=== PATIENT | male | born 1960 | race Caucasian/White ===

== ENCOUNTER → 2016-03-27 09:34 | Outpatient (CLI) | payer BC ==
[2015-06-05 07:27] VITALS: BMI 29.0
[~2016-03-27 09:34] MED LIST: ADVAIR 100/501 DISK INH; ASPIRIN81 MG PO; COZAAR100 MG PO; NORVASC5 MG PO; PLAVIX75 MG PO; PROTONIX40 MG PO
== END | disposition home or self-care (01) ==
LOC: D.CT 09:34
DX: R93.8 Abnormal findings on diagnostic imaging of other specified body structures (principal); R10.9 Unspecified abdominal pain

== ENCOUNTER 2016-03-30 07:24 | Outpatient (CLI) | payer BC ==
[~2016-03-30] VITALS: Ht 170.2 cm; Wt 86.4 kg
--- NOTE | ~2016-03-30 | HEMODYNAMI ---
PATIENT:TISH TELLES MEDICAL RECORD: [id number] : 60 LOCATION:[facility] ADMISSION DATE: 03/30/16 Generatedon:03/30/201610:44 Patient name: TISH TELLES Patient #: [id number] SSN: : 1960 Date of study: 03/30/2016 Page: Of Hemodynamic Procedure Report Patient Data Patient Demographics Procedure consent was obtained First Name: TISH Gender: Male Last Name: KOKI : 1960 Middle Initial: VASQUEZ Age: 55 year(s) Patient #: [id number] Race: Additional ID: [id number] Contact details [address]: [address] [place] [address] State: [place] City: [place] Zip code: [address] Past Medical History History of disease Date Diagnosis Comments CAD Chronic lung disease->COPD Peripheral vascular disease Allergies: No known allergies Admission Admission Data Admission Date: 03/30/2016 Admission Time: 7:24 Height (in.): 67 BSA: 1.98 (m2) Height (cm.): 170.18 BMI: 29.76 (kg/m2) Weight (lbs.): 190 Weight (kg.): 86.18 Lab Results Lab Result Date: 03/30/2016 Lab Result Time: 0:00 Biochemistry Name Units Result Min Max BUN mg/dl 11 --(-*--)-- 7 18 Creatinine mg/dl 0.7 --(*---)-- 0.6 1.3 CBC Name Units Result Min Max Hemoglobin g/dl 17.1 --(---*)-- 13.5 17.5 Procedure Procedure Types Cath Procedure Diagnostic Procedure [facility] w/Coronaries PCI Procedure Coronary Stent Initial Miscellaneous Procedures Moderate Sedation up to 15 minutes Procedure Description Procedure Date Procedure Date: 03/30/2016 Procedure Start Time: 10:16 Procedure End Time: 10:41 Procedure Staff Name Function Dewayne Lan MD Performing Physician Josselin Marrero RT Scrub Matilde Rodrigues RN Nurse Arsenio Leigh RN Dining Room Attendant Cafeteria Maurice Youssef RT Monitor Shalondarose Tai RT Dining Room Attendant Cafeteria Procedure Data Cath Procedure Fluoroscopy Diagnostic fluoroscopy Total fluoroscopy Time: 9.2 time: 9.2 min min Diagnostic fluoroscopy Total fluoroscopy dose: 646 dose: 646 mGy mGy Contrast Material Contrast Material Type Amount (ml) Isovue 300 150 Entry Location Entry Primary Successful Side Size Upsize Upsize Entry Closure Succes sful Closure Location (Fr) 1 (Fr) 2 (Fr) Remarks Device Remarks Femoral Right 5 Fr 6 Fr Vascade artery Short Closure System Estimated blood loss: 10 ml Diagnostic catheters Device Type Used For End Catheter Placement Cordis 5Fr Pigtail Procedure Catheter (MP) Cordis 5Fr JL 4.0 Left Coronary Catheter (MP) Angiography Cordis 5Fr 3DRC Catheter Right Coronary (MP) Angiography Procedure Complications No complications Procedure Medications Medication Administration Route Dosage Oxygen NC 2 l/min Lidocaine 2% added to field 20 Heparin Flush Bag added to field 2 bags (1000units/500ml NS) 0.9% NaCl I.V. 100 ml/hr Versed I.V. 2 mg Fentanyl I.V. 100 mcg Versed I.V. 2 mg Fentanyl I.V. 100 mcg Versed I.V. 1 mg Fentanyl I.V. 50 mcg Heparin Bolus I.V. 4000 units Versed I.V. 1 mg Fentanyl I.V. 50 mcg Nitroglycerin IC/IA I.C. 300 mcg Versed I.V. 1 mg Fentanyl I.V. 50 mcg Lopressor I.V. 5 mg Fentanyl I.V. 50 mcg Hemodynamics Rest BSA: 1.98 (m2) HGB: 17.1 (g/dl) O2 Consumption: Estimated: 240.72 (ml/min) O2 Co nsumption indexed: Estimated:121.58 (ml/min/m) Heart Rate: 78 (bpm) Snapshots Pre Cath Intra NCS Post Cath Vital Signs Time Heart Resp SPO2 etCO2 [id number] NIBP (mmHg) Rhythm Pain Sedatio n Rate (ipm) (%) (mmHg) (mmHg) Status Level (bpm) 10:01:38 74 16 100 0 0 216/100(153) NSR 0 (11) 10(A) , No pain 10:06:07 80 17 99 0 0 166/93(138) NSR 0 (11) 10(A) , No pain 10:10:27 78 15 97 0 0 171/92(145) NSR 0 (11) 10(A) , No pain 10:14:51 79 16 95 0 0 164/85(124) NSR 0 (11) 10(A) , No pain 10:19:07 91 20 97 0 0 155/94(125) NSR 0 (11) 9(A) , No pain 10:23:27 80 18 95 0 0 147/79(111) NSR 0 (11) 9(A) , No pain 10:27:41 90 16 96 0 0 134/82(109) NSR 0 (11) 9(A) , No pain 10:32:40 107 18 96 0 0 Measuring NSR 0 (11) 9(A) , No pain 10:32:50 108 17 95 0 0 178/100(137) NSR 0 (11) 9(A) , No pain 10:37:09 104 17 93 0 0 154/99(134) NSR 0 (11) 9(A) , No pain 10:41:26 83 17 94 0 0 167/90(114) NSR 0 (11) 10(A) , No pain Medications Time Medication Route Dose Verified Delivered Reason Notes Effectiveness by by 9:56:40 Oxygen NC 2 Dewayne Buffie used for l/min Riky Rodrigues RN procedure 10:00:08 Lidocaine 2% added 20ml Dewayne Dewayne for local to vial Riky Lan MD anesthetic field 10:00:13 Heparin Flush added 2 Dewayne Dewayne used for Bag to bags Riky Lan MD procedure (1000units/500ml field NS) 10:00:22 0.9% NaCl I.V. 100 Dewayne Buffie Per physician ml/hr Riky Rodrigues RN 10:13:26 Versed I.V. 2 mg Dewayne Buffie for sedation Riky Rodrigues RN 10:13:32 Fentanyl I.V. 100 Dewayne Buffie for sedation mcg Riky Rodrigues RN 10:18:35 Versed I.V. 2 mg Dewayne Buffie for sedation Riky Rodrigues RN 10:18:39 Fentanyl I.V. 100 Dewayne Buffie for sedation mcg Riky Rodrigues RN 10:21:24 Versed I.V. 1 mg Dewayne Buffie for sedation Riky Rodrigues RN 10:21:28 Fentanyl I.V. 50 Dewayne Aaronie for sedation mcg Riyk Rodrigues RN 10:24:20 Heparin Bolus I.V. 4000 Dewayne Galenie for verifi ed units Riky Rodrigues RN anticoagulation with dr lan 10:27:14 Versed I.V. 1 mg Dewayne Buffie for sedation Riky Rodrigues RN 10:27:17 Fentanyl I.V. 50 Dewayne Galenie for sedation mcg Riky Rodrigues RN 10:31:54 Nitroglycerin I.C. 300 Dewayne Buchanan for IC/IA mcg Riky kemp 10:33:31 Versed I.V. 1 mg Dewayne Aaronie for sedation Riky Rodrigues RN 10:33:35 Fentanyl I.V. 50 Dewayne Galenie for sedation mcg Riky Rodrigues RN 10:35:05 Fentanyl I.V. 50 Dewayne Galenie for sedation mcg Riky Rodrigues RN 10:36:23 Lopressor I.V. 5 mg Dewayne Clayton Per physician Riky Rodrigues RN Procedure Log Time Note 9:30:24 Arsenio Leigh RN sent for patient. Start room use. 9:46:19 ACC Patient presents with Stable Angina CCS Anginal Class 2--Slight limitation of ordinary activity. 9:46:21 Diagnostic Cath status Elective 9:46:38 Time tracking: Regular hours 9:46:42 Plan of Care:Hemodynamics will remain stable., Cardiac rhythm will remain stable., Comfort level will be maintained., Respiratory function will remain adequate., Patient/ family verbilizes understanding of procedure., Procedure tolerated without complication., Recovers from procedure without complications.. 9:46:48 Patient received from Outpatients to CCL 1 Alert and oriented. Tansferred to table in Supine position. 9:46:49 Warm blankets applied, and berto hugger turned on for patient comfort. 9:46:50 Correct patient and procedure confirmed by team. 9:46:51 Signed procedure consent form obtained from patient. 9:46:52 ECG and BP/O2 sat monitors applied to patient. 9:47:33 Patient Height : 67 inches 9:47:35 Patient Weight : 190 lbs 9:49:51 Lab Result : Hemoglobin 17.1 g/dl 9:49:51 Lab Result : Creatinine 0.7 mg/dl 9:49:51 Lab Result : BUN 11 mg/dl 9:53:45 H&P Date Dictated: 03/25/2016 Within 30 days and on chart., H&P Addendum completed by physician on day of procedure. (MUST COMPLETE FOR ALL OUTPATIENTS). 9:53:49 Pre-procedure instructions explained to patient. 9:54:11 Family in waiting room. 9:54:13 Patient NPO since Midnight. 9:54:49 Patient allergic to No known allergies 9:54:54 Is the patient allergic to Iodine/contrast media? No. 9:54:59 Is the patient allergic to Iodine/contrast media? No. 9:55:03 Is patient on blood thinner?Yes 9:55:12 ACC The patient was administered the following blood thiners within the last 24 hours: ACCAspirin, ACCPlavix 9:55:43 Patient diabetic? No. 9:55:47 Previous problem with sedation/anesthesia? No ? 9:56:14 IV patent on arrival in left forearm with 0.9% NaCl at [facility]. 9:56:40 Oxygen 2 l/min NC was given by Matilde Rodrigues RN; used for procedure; 9:56:59 Snore? Yes 9:57:01 Sleep apnea? No 9:57:05 Airway obstruction? Yes COPD 9:57:21 Lab results completed and on chart. 9:57:26 Right groin area was prepped with chlora-prep and draped in sterile fashion 9:57:32 Sharps counted by scrub and verified by R.N. 9:59:12 Vital chart was started 9:59:43 Baseline sample Acquired. 9:59:49 Rhythm: sinus rhythm 9:59:51 Full Disclosure recording started 10:00:05 Use device set Femoral Dx 10:00:07 Acist Syringe opened to sterile field. 10:00:08 Lidocaine 2% 20ml vial added to field was given by Dewayne Lan MD; for local anesthetic; 10:00:08 Bag Decanter opened to sterile field. 10:00:08 Medline Cath Pack opened to sterile field. 10:00:10 Terumo 5Fr [place] Sheath opened to sterile field. 10:00:13 Heparin Flush Bag (1000units/500ml NS) 2 bags added to field was given by Dewayne Lan MD; used for procedure; 10:00:13 St Alex 260cm J .035 wire opened to sterile field. 10:00:15 Acist Hand Control opened to sterile field. 10:00:15 Acist Manifold opened to sterile field. 10:00:18 Cordis Infinity 5Fr Multipack catheter opened to sterile field. 10:00:22 0.9% NaCl 100 ml/hr I.V. was given by Matilde Rodrigues RN; Per physician; 10:00:49 Procedure type changed to Cath procedure, Diagnostic procedure, LHC, LHC w/Coronaries, PCI procedure, Coronary Stent Initial, Miscellaneous Procedures, Moderate Sedation up to 15 minutes 10:09:23 Physician paged 10:10:56 Tegaderm 4 x 4 opened to sterile field. 10:12:28 Zero performed for pressure channel P1 10:12:51 Physician arrived 10:13:14 --------ALL STOP TIME OUT------ 10:13:16 Final Timeout: patient, procedure, and site verified with staff and physician. All members of the team are in agreement. 10:13:19 Bilateral groins site verified by team. 10:13:24 Physical assessment completed. ASA score P 2 - A patient with mild systemic disease as per Dewayne Lan MD. 10:13:26 Versed 2 mg I.V. was given by Matilde Rodrigues RN; for sedation; 10:13:29 Sedation plan: IV Moderate Sedation Versed, Fentanyl 10:13:32 Fentanyl 100 mcg I.V. was given by Matilde Rodrigues RN; for sedation; 10:16:34 Procedure started. 10:16:39 Local anesthetic to right femoral artery with Lidocaine 2% by Dewayne Lan MD.INITIAL ACCESS ONLY 10:18:35 Versed 2 mg I.V. was given by Matilde Rodrigues RN; for sedation; 10:18:39 Fentanyl 100 mcg I.V. was given by Matilde Rodrigues RN; for sedation; 10:19:35 A 5 Fr sheath was inserted into the Right Femoral artery 10:20:01 A Cordis 5Fr Pigtail Catheter (MP) was advanced over the wire and used for Procedure. 10:20:06 LV gram done using ABDUL 10:20:14 EF : 55 % 10:20:16 Catheter removed. 10:20:28 A Cordis 5Fr JL 4.0 Catheter (MP) was advanced over the wire and used for Left Coronary Angiography. 10::24 Versed 1 mg I.V. was given by Matilde Rodrigues RN; for sedation; 10::28 Fentanyl 50 mcg I.V. was given by Matilde Rodrigues RN; for sedation; 10::57 Catheter removed. 10:22:05 A Cordis 5Fr 3DRC Catheter (MP) was advanced over the wire and used for Right Coronary Angiography. 10:22:11 RCA angiography performed. 10:22:42 JelasticumNumberFour 6Fr [place] Sheath opened to sterile field. 10:22:43 Carlson GeoOPisper J 300cm 0.014 guide wire opened to sterile field. 10:22:43 [employer] Inflation Kit opened to sterile field. 10:22:48 Catheter removed. 10:22:49 Proceeding to intervention. 10:23:04 Sheath upsized to a 6 Fr Short. 10:23:15 ACC PCI Site: mRCA has 90% stenosis. 10:23:18 ACC Pre-intervention CINDY Flow is 3. 10:24:14 Medtronic Launcher 6Fr AR 2.0 guide catheter opened to sterile field. 10:24:20 Heparin Bolus 4000 units I.V. was given by Matilde Rodrigues RN; for anticoagulation; verified with dr lan 10:24:23 whis wire advanced. 10:24:49 Wire advanced across lesion. 10:25:33 Inflation number: 1 A [place] Sci [place] 3.5 X 20 balloon was prepped and advanced across the Mid RCA, then inflated to 7 [place] for 0:10 (min:sec). 10:25:39 Inflation number: 2 The [place] Sci [place] 3.5 X 20 balloon was reinflated across the Mid RCA, to 11 [place] for 0:00 (min:sec). 10:26:51 Balloon removed over the wire. 10:27:14 Versed 1 mg I.V. was given by Matilde Rodrigues RN; for sedation; 10:27:17 Fentanyl 50 mcg I.V. was given by Matilde Rodrigues RN; for sedation; 10:27:35 Inflation Number: 3 A Medtronic Resolute 3.5 X 38 stent was prepped and advanced across the Mid RCA. The stent was deployed at 17 [place] for 0:10 (min:sec). 10:27:57 Inflation number: 4 The stent balloon was then re-inflated across the Mid RCA to 17 [place] for 0:00 (min:sec). 10:28:28 Vascade 6/7 Fr Closure Device opened to sterile field. 10:29:18 Inflation number: 5 The stent balloon was then re-inflated across the Mid RCA to 21 [place] for 0:00 (min:sec). 10:30:51 Inflation Number: 1 A Medtronic Resolute 3.0 X 18 stent was prepped and advanced across the Dist RCA. The stent was deployed at 13 [place] for 0:10 (min:sec). 10:31:54 Nitroglycerin IC/IA 300 mcg I.C. was given by Dewayne Lan MD; for vasodilation; 10:32:13 Inflation number: 2 The stent balloon was then re-inflated across the Dist RCA to 3 [place] for 0:10 (min:sec). 10:32:22 Inflation number: 3 The stent balloon was then re-inflated across the Dist RCA to 3 [place] for 0:10 (min:sec). 10:33:01 Inflation number: 4 The stent balloon was then re-inflated across the Dist RCA to 5 [place] for 0:10 (min:sec). 10:33:31 Versed 1 mg I.V. was given by Matilde Rodrigues RN; for sedation; 10:33:35 Fentanyl 50 mcg I.V. was given by Matilde Rodrigues RN; for sedation; 10:34:15 Inflation number: 5 The stent balloon was then re-inflated across the Dist RCA to 7 [place] for 0:10 (min:sec). 10:34:33 Balloon removed over the wire. 10:35:05 Fentanyl 50 mcg I.V. was given by Matilde Rodrigues RN; for sedation; 10:36:11 Inflation Number: 1 A Medtronic Resolute 3.0 X 22 stent was prepped and advanced across the Dist RCA1. The stent was deployed at 13 [place] for 0:10 (min:sec). 10:36:23 Lopressor 5 mg I.V. was given by Matilde Rodrigues RN; Per physician; 10:36:33 Wire removed. 10:36:35 Guide catheter removed. 10:36:49 Sheath removed intact; hemostasis achieved with Vascade Closure System to the Right Femoral artery. 10:36:56 Procedure ended.(Physican Out) 10:37:50 Fluoroscopy time 09.20 minutes. 10:37:55 Fluoroscopy dose: 646 mGy 10:37:55 Flurop Dose total: 646 10:38:00 Contrast amount:Isovue 300 150ml. 10:38:03 Sharps counted by scrub and verified by R.N. 10:38:10 Insertion/operative site no bleeding no hematoma. 10:38:18 Post-op/insertion site Right Femoral artery dressed using a 4 x 4 and Tegaderm. 10:38:24 Post right femoral artery:stable 10:38:30 Post Procedure Pulses reassessed and unchanged 10:38:38 Post-procedure physical assessment completed. ASA score P 2 - A patient with mild systemic disease as per Dewayne Lan MD. 10:38:43 Post procedure rhythm: unchanged. 10:38:46 Estimated blood loss: 10 ml 10:38:49 Post procedure instruction explained to patient.Patient verbalizes understanding. 10:38:51 Patient needs reinforcement of post procedure teaching. 10:39:41 Procedure and supply charges have been captured, reviewed, submitted and are correct. 10:40:54 Procedure Complication : No complications 10:40:57 Vital chart was stopped 10:40:58 See physician's report for complete and final results. 10:41:11 Report given to Outpatients. 10:41:15 Patient transfered to Outpatients with Stretcher. 10:41:20 Procedure ended. 10:41:20 Full Disclosure recording stopped 10:41:23 End room use (Document Last) 10:42:47 ACC-PCI Only Patient was given prescriptions, or instructed by Dewayne Lan MD to start/continue the following medications upon discharge: Plavix Intervention Summary Intervention Notes Time ActionType Lesion and Equipment Action# Pressure Duration Attributes Used 10:25:33 Inflate Mid RCA [place] 1 7 00:10 balloon Sci [place] 3.5 X 20 balloon 10:25:39 Reinflate Mid RCA [place] 2 11 00:00 balloon Sci [place] 3.5 X 20 balloon 10:27:35 Place stent Mid RCA Medtronic 3 17 00:10 Resolute 3.5 X 38 stent 10:27:57 Reinflate Mid RCA Medtronic 4 17 00:00 stent Resolute balloon 3.5 X 38 stent 10:29:18 Reinflate Mid RCA Medtronic 5 21 00:00 stent Resolute balloon 3.5 X 38 stent 10:30:51 Place stent Dist RCA Medtronic 1 13 00:10 Resolute 3.0 X 18 stent 10:32:13 Reinflate Dist RCA Medtronic 2 3 00:10 stent Resolute balloon 3.0 X 18 stent 10:32:22 Reinflate Dist RCA Medtronic 3 3 00:10 stent Resolute balloon 3.0 X 18 stent 10:33:01 Reinflate Dist RCA Medtronic 4 5 00:10 stent Resolute balloon 3.0 X 18 stent 10:34:15 Reinflate Dist RCA Medtronic 5 7 00:10 stent Resolute balloon 3.0 X 18 stent 10:36:11 Place stent Dist RCA1 Medtronic 1 13 00:10 Resolute 3.0 X 22 stent Device Usage Item Name Manufacture Quantity Catalog Number Hospital Part Current Mini mal Lot# / Charge Number Stock Stock Serial# Code Acist Acist 1 21522 613174 720027 860246 20 NewsCastic [employer] Inc Bag Microtek 1 2002S 783787 98309 537157 5 Gunosy Inc. Medline Cardinal 1 [id number] 846476 00234 568713 5 Cath Pack Health Terumo 5Fr Terumo 1 [id number] 479104 621653 300630 [address] Alex 1 935701 611375 315291 423520 30 260cm J .035 wire Acist Hand Acist 1 47513 825255 230932 913922 5 FIXO Medical Systems Inc Acist Acist 1 98238 516071 531248 664995 5 Qiro Systems Inc Cordis Cardinal 1 [id number] 532345 03513 778456 30 Infinity Health 5Fr Multipack catheter Tegaderm 4 3M 1 [id number] 326476 276526 700082 5 x 4 Cordis 5Fr Cardinal 1 721250 5 Pigtail Health Catheter (MP) Cordis 5Fr Cardinal 1 391229 5 JL 4.0 Health Catheter (MP) Terumo 6Fr Terumo 2 [id number] 465321 448771 180781 40 [place] Sheath Cordis 5Fr Cardinal 1 874021 5 3DRC Health Catheter (MP) Carlson Carlson 1 [id number] 596525 592276 071708 5 Whisper J Vascular 300cm 0.014 guide wire Merit Merit 1 [id number] 369586 349726 247051 15 BasixCompak Medical Inflation Kit Medtronic Medtronic 1 [id number] 777040 90451 979586 1 Launcher 6Fr AR 2.0 guide catheter [place] Sci [place] 1 [id number] 141352 485365 658654 1 [id number] [place] Scientific 3.5 X 20 balloon Medtronic Medtronic 1 [id number] 417562 261924 0 [id number] Resolute 3.5 X 38 stent Vascade 07/22 Cardiva 1 [id number] 596920 656434 582804 5 Fr Closure Medical, Device Inc. Medtronic Medtronic 1 [id number] 687394 560651 1 [id number] Resolute 3.0 X 18 stent Medtronic Medtronic 1 [id number] 449947 855913 5 [id number] Resolute 3.0 X 22 stent Signature Audit [place] Stage Time Signature Unsigned Intra-Procedure 03/30/2016 Shalonda Tai 10:44:00 AM RT(R) Signatures Monitor : Maurice Youssef RT Signature : Date : Time : [id number] [place] [address]
[~2016-03-30 07:24] MED LIST changes: -ADVAIR 100/501 DISK INH; -PROTONIX40 MG PO
[2016-03-30] MEDS ORDERED: ADVAIR 100/501 DISK INH (07:43)
[2016-03-30] MEDS ORDERED: PROTONIX40 MG PO (07:43)
[2016-03-30 07:51] VITALS: BP 158/86; Ht 170.2 cm; Wt 86.4 kg
[2016-03-30 08:03] LABS: BASOPHILS 0.8 % (0.0-2.0); EOSINOPHILS 4.5 % (0-7); HEMATOCRIT 48.7 % (42.0-54.0); HEMOGLOBIN 17.1 g/dL (13.5-17.5); IMMATURE GRANULOCYTES 0.2 % (0-5); LYMPHOCYTES 33.5 % (15-50); MCH 35.6 pg (26.0-34.0); MCHC 35.1 g/dL (31.0-37.0); MCV 101.5 fL (80.0-100.0); MEAN PLATELET VOLUME 11.5 fL (7.4-10.4); MONOCYTES 11.5 % (2-11); NEUTROPHILS 49.5 % (40-80); PLATELET COUNT 133 10x3/uL (130-400); RDW 12.4 % (11.5-14.5); WBC 4.7 10x3/uL (4.8-10.8)
[2016-03-30 08:07] LABS: CALC OSMOLALITY 282 mosm/kg (275-300); CALCIUM 9.2 mg/dL (8.5-10.1); CARBON DIOXIDE 27.8 mmol/L (21.0-32.0); CHLORIDE - SERUM 106 mmol/L (98-107); CREATININE - SERUM 0.7 mg/dL (0.6-1.3); GLUCOSE 109 mg/dL (74-106); POTASSIUM - SERUM 4.7 mmol/L (3.5-5.1); SODIUM 142 mmol/L (136-145); UREA NITROGEN 11 mg/dL (7-18); eGFR NON AFRICAN AMERICAN > 90 mL/min (90-120)
--- NOTE | 2016-03-30 09:44 | NUR ---
IV BENADRYL GIVEN PER SÁNCHEZ LINE FLUSHED WITH 10 CC NS. TRANSPORT TO RETAIL LOSS PREVENTION OFFICER VIA STRETCHER
--- NOTE | 2016-03-30 11:03 | NUR ---
1040 RECEIVED PT FROM PACKAGER HEAD. PT IS DROWSY, DENIES ANY C/O. DRESSING TO RIGHT GROIN IS CDI, NO BLEEDING OR HEMATOMA NOTED. PEDAL PULSES PALPABLE. PT DENIES ANY C/O. IV PATENT. CALL LIGHT IN REACH. PT INSTRUCTED TO CALL FOR ANY NEEDS, TO KEEP HEAD TO PILLOW AND RIGHT LEG STRAIGHT, PT VERBALIZES UNDERSTANDING. FAMILY AT BEDSIDE.
--- NOTE | 2016-03-30 12:25 | NUR ---
1225 PT DENIES ANY C/O. GROIN REMAINS STABLE WITH NO BLEEDING OR HEMATOMA NOTED. PEDAL PULSES PALPABLE. CALL LIGHT IN REACH.
--- NOTE | 2016-03-30 13:02 | NUR ---
PATIENT SLEEPING QUIELTY WITH EYES CLOSED VSS WITH 6 FR VASCADE R/GROIN CDI NO BLEEDING NO HEMATOMA NOTED. WILL MONITOR
--- NOTE | 2016-03-30 14:22 | NUR ---
1300 PT SLEEPING OFF AND ON, DENIES ANY C/O. GROIN IS STABLE WTIH NO BLEEDING OR HEMATOMA. AT BEDSIDE. PEDAL PULSES PALPABLE. CALL LIGHT IN REACH.
--- NOTE | 2016-03-30 14:38 | NUR ---
1435 PT IS ALERT, DENIES ANY C/O. SANDWICH TRAY SERVED. GROIN STBLE WITH NO BLEEDING OR HEMATOMA, PEDAL PULSES PALPABLE. AT BEDSIDE.
--- NOTE | 2016-03-30 15:00 | NUR ---
1500 PT HAS TOLERATED SANDWICH WITH NO C/O NAUSEA. PT HAS AMBULATED TO THE BATHROOM AND VOIDED QS. GROIN REMAINS STABLE WITH AMBULATION. REVIEWED DC INSTRUCTIONS WITH PT AND WHO VERBALIZE UNDERSTANDING. PT ESCORTED TO PRIVATE AUTO VIA WC BY STAFF WITH DRIVING HIM HOME.
--- NOTE | 2016-04-10 08:46 | OP ---
PATIENT NAME: TISH TELLES MEDICAL RECORD: [id number] :60 LOCATION:D.CAT ADMISSION DATE: SURGEON: DION CRAWFORD MD DATE OF OPERATION: 03/30/2016 PROCEDURES: 1. PTCA stent RCA. 2. Left heart catheterization. 3. Selective coronary angiography. 4. Left ventriculogram. INDICATION: Angina and coronary artery disease. PROCEDURE: After informed consent was obtained and after detailed explanation of risks, benefits as well as alternative therapies, the patient elected to proceed with angiogram and angioplasty. The right femoral area was prepped and draped in normal sterile fashion. The right femoral artery was cannulated via modified Seldinger technique with placement of 6-[place] sheath. All catheters exchanged through this sheath. FINDINGS: Left ventriculogram was performed in standard 30-degree ABDUL view, reveals good cardiac wall motion, ejection fraction 55%. SELECTIVE CORONARY ANGIOGRAPHY: 1. Left main showed no significant angiographic disease. 2. Left anterior descending has moderate irregularities, but no flow-limiting stenosis. 3. Left circumflex shows mild to moderate irregularities, but no flow-limiting stenosis. 4. Right coronary has previously placed stents. There is 95% in-stent restenosis, as well as a 95% stenosis after the previously placed stent. PTCA STENT OF THE RIGHT CORONARY: The stent used from proximal to distal are 3.5 x 38, 3.0 x 18, 3.0 x 22 all Resolute stents. Result was 0% residual stenosis. OVERALL IMPRESSION: Successful percutaneous transluminal coronary angioplasty stent of the right coronary artery going from 95% initial stenosis to 0% residual. TRANSINT:[id number] Voice Confirmation ID: [id number] DOCUMENT ID: [id number] DION CRAWFORD MD at 0846 CC: [id number] DICTATION DATE: 03/30/16 1042 PROGRAM COUNSELOR: 03/30/16 1119 DEP CLI 03/30/[address] [address]
== END 2016-03-30 15:00 | disposition home or self-care (01) ==
LOC: D.CATH 07:24
PROVIDERS: Internal Medicine Interventional Cardiology
DX: I25.10 Atherosclerotic heart disease of native coronary artery without angina pectoris (principal); I10 Essential (primary) hypertension; E78.5 Hyperlipidemia, unspecified

== ENCOUNTER 2019-07-25 05:15 | Day surgery (SDC) | payer BC ==
[~2019-07-25] VITALS: Ht 170.2 cm; Wt 78.5 kg
[~2019-07-25 05:15] MED LIST changes: +ADVAIR 100/501 DISK INH; +PROTONIX40 MG PO
[2019-07-25 05:40] LABS: HEMATOCRIT 46.1 % (42.0-54.0); MCH 35.1 pg (26.0-34.0); MCHC 34.7 g/dL (31.0-37.0); MCV 101.1 fL (80.0-100.0); MEAN PLATELET VOLUME 9.9 fL (7.4-10.4); RBC 4.56 10x6/uL (4.20-6.10); RDW 12.4 % (11.5-14.5); WBC 4.8 10x3/uL (4.8-10.8)
[2019-07-25 06:32] VITALS: BP 112/74; Ht 170.2 cm; Wt 78.5 kg
--- NOTE | 2019-07-25 08:56 | NUR ---
0845 PT MORE ALERT NOW STATES HAS URGE TO DEFICATE, NOT READY TO GET OUT OF BED YET, BEDPAN OFFERED AND DECLINED. LEFT AT BEDSIDE. COFFEE ORDERED. 0850 COFFEE SERVED. AT SIDE.
--- NOTE | 2019-07-26 06:53 | OP ---
PATIENT NAME: TISH TELLES MEDICAL RECORD: [id number] :60 LOCATION:[facility] ADMISSION DATE: SURGEON: DAVID MCGUIRE MD DATE OF OPERATION: 07/25/2019 SURGEON: David Mcguire MD ANESTHESIA: TIVA by Lynn Delgado CRNA. DIAGNOSES: Obstructive bladder neck stenosis, elevated PSA of 7.0. PROCEDURE: Cystoscopy, transrectal ultrasound, and prostate biopsy. FINDINGS: On cystoscopy, no urethral strictures, tight bladder neck. Single ureteral orifices bilaterally with no bladder tumors. Transrectal ultrasound shows 19 gram prostate with hypoechoic areas in the anterior of the prostate. SPECIMENS: Prostate biopsy cores. BLOOD LOSS: None. CLINICAL HISTORY: This is a 58-year-old male, who was found to have an elevated PSA of 7.0. He does not have a family history of prostate cancer. On rectal examination, no nodules were palpated on the prostate. The prostate is small. He denies any voiding symptoms. He comes today to have a transrectal ultrasound and prostate biopsy. Cystoscopy was also consented to. He was given his preoperative antibiotics preparation supervisor freezing to the OR. DESCRIPTION OF PROCEDURE: The patient was given the IV antibiotics. He was placed into lithotomy position and prepped. We introduced the transrectal ultrasound probe. This showed that the bladder was quite full even though the patient had just voided within 30 minutes prior to the procedure. He seemed to have incomplete bladder emptying. Prostate size measurements were obtained and the prostate was found to be 19 grams in size. There are some intraprostatic stones in the hypoechoic area in the anterior portion of the prostate. Sextant biopsies were obtained with at least 3 cores from each sextant. Once all the sextant were obtained, we emptied the bladder through a Mcfarland catheter. The catheter was done as an in and out catheterization. We then scoped the patient by prepping him again and using a 17-Mohawk cystoscope. The findings are as outlined above. The patient was then awakened after draining the bladder through the scope and removing the scope. He was brought to the recovery room. I will see him in followup next week to review the results and to determine if he wants to have anything done about his bladder neck stenosis. TRANSINT:[id number] Voice Confirmation ID: [id number] DOCUMENT ID: [id number] DAVID MCGUIRE MD at 0653 CC: [id number] DICTATION DATE: 07/25/19 0839 FAMILY PRACTICE PHYSICIAN ASSISTANT: 07/25/19 1527 [facility] 07/25/19 [id number] [place] [address]
== END 2019-07-25 09:15 | disposition home or self-care (01) ==
LOC: D.OPS 05:15 → D.PAN 07:30 → D.OPS 07:30
PROVIDERS: Anesthesiology; ATTEND Urology
DX: N32.0 Bladder-neck obstruction (principal); R97.20 Elevated prostate specific antigen [PSA]; I10 Essential (primary) hypertension; J44.9 Chronic obstructive pulmonary disease, unspecified; N48.6 Induration penis plastica

== ENCOUNTER → 2019-08-01 10:11 | Outpatient (CLI) | payer BC ==
[2019-07-25 06:32] VITALS: BMI 27.1
== END | disposition home or self-care (01) ==
LOC: D.NM 10:00
PROVIDERS: ATTEND Urology
DX: C61 Malignant neoplasm of prostate (principal)

== ENCOUNTER 2019-08-11 11:39 | Outpatient (CLI) | payer BC ==
[~2019-08-11] VITALS: Ht 170.2 cm; Wt 82.7 kg
[2019-08-11 12:25] LABS: HEMATOCRIT 46.5 % (42.0-54.0); LYMPHOCYTES 32.9 % (15-50); MCH 34.3 pg (26.0-34.0); MCHC 34.4 g/dL (31.0-37.0); MCV 99.8 fL (80.0-100.0); MEAN PLATELET VOLUME 9.3 fL (7.4-10.4); NEUTROPHILS 52.2 % (40-80); PLATELET COUNT 135 10x3/uL (130-400); RBC 4.66 10x6/uL (4.20-6.10); RDW 12.5 % (11.5-14.5); WBC 4.2 10x3/uL (4.8-10.8)
[2019-08-11 12:33] VITALS: BP 175/82; Ht 170.2 cm; Wt 82.7 kg
[2019-08-11 12:45] LABS: CALC OSMOLALITY 276 mosm/kg (275-300); CALCIUM 8.5 mg/dL (8.5-10.1); CARBON DIOXIDE 28.5 mmol/L (21.0-32.0); CHLORIDE - SERUM 106 mmol/L (98-107); CREATININE - SERUM 0.8 mg/dL (0.6-1.3); GLUCOSE 96 mg/dL (74-106); POTASSIUM - SERUM 4.2 mmol/L (3.5-5.1); SODIUM 140 mmol/L (136-145); UREA NITROGEN 8 mg/dL (7-18); eGFR NON AFRICAN AMERICAN > 90 mL/min (90-120)
[2019-08-11 13:04] LABS: APTT 26.4 SECONDS (22.8-39.4); INR 1.1 (0.85-1.17); PROTIME 14.1 SECONDS (11.6-15.0)
--- NOTE | 2019-08-11 18:51 | NUR ---
1530 SPOKE WITH KELSEY SHEIKH. STATES [facility] WILL ENTER ORDERS TO DISCHARGE PT AT 1645 IF VSS AND NO OTHER CONCERNS
== END 2019-08-11 16:45 | disposition home or self-care (01) ==
LOC: D.SP 11:39 → D.CT 14:00 → D.SP 16:45
PROVIDERS: Radiology Diagnostic Radiology; ATTEND Urology
DX: C61 Malignant neoplasm of prostate (principal); I10 Essential (primary) hypertension; J44.9 Chronic obstructive pulmonary disease, unspecified; C79.51 Secondary malignant neoplasm of bone; F10.20 Alcohol dependence, uncomplicated; K70.30 Alcoholic cirrhosis of liver without ascites

== ENCOUNTER 2020-05-14 07:01 | Day surgery (SDC) | payer BC ==
[~2020-05-14] VITALS: Ht 170.2 cm; Wt 82.1 kg
--- NOTE | ~2020-05-14 | HEMODYNAMI ---
PATIENT:TISH TELLES MEDICAL RECORD: [id number] : 60 LOCATION:D.[facility] ADMISSION DATE: 05/14/20 Generatedon::57 Patient name: TISH TELLES Patient #: [id number] SSN: [id number] : 1960 Date of study: 05/14/2020 Page: Of Hemodynamic Procedure Report Patient Data Patient Demographics Procedure consent was obtained First Name: TISH Gender: Male Last Name: KOKI : 1960 [facility] Initial: VASQUEZ Age: 59 year(s) Patient #: [id number] Race: SSN: [id number] Additional ID: [id number] Contact details Address: [address] [place] [address] State: [place] City: [place] Zip code: [address] Past Medical History History of disease Date Diagnosis Comments CAD Chronic lung disease->COPD Peripheral vascular disease Allergies: No known allergies Admission Admission Data Admission Date: 05/14/2020 Admission Time: 7:01 Arrival Date: 05/14/2020 Arrival Time: 0:00 Admit Source: Other Insurance Payor: Private health insurance [facility] #: [id number] Height (in.): 67 BSA: 1.94 (m2) Height (cm.): 170.18 BMI: 28.34 (kg/m2) Weight (lbs.): 180.98 Weight (kg.): 82.09 Lab Results Lab Result Date: 05/14/2020 Lab Result Time: 0:00 Biochemistry Name Units Result Min Max BUN mg/dl 9 --(*---)-- 7 18 Creatinine mg/dl 0.7 --(*---)-- 0.6 1.3 eGFR ml/min 90 --(*---)-- 90 120 NONAFRICAN CBC Name Units Result Min Max Hemoglobin g/dl 16 --(--*-)-- 13.5 17.5 Procedure Procedure Types Cath Procedure Sedation Charges Moderate Sedation 25-39 minutes Peripheral Cath Diagnostic Procedure Roll Tender Peripheral Procedures AFRO Diagnostic Procedure Description Procedure Date Procedure Date: 05/14/2020 Procedure Start Time: 9:35 Procedure End Time: 9:50 Procedure Staff Name Function Angel Hodge MD Performing Physician Josselin Marrero RT Monitor Cary Uriarte RT Scrub Matilde Rodrigues RN Nurse Procedure Data Cath Procedure Fluoroscopy Diagnostic fluoroscopy Total fluoroscopy Time: 1.9 time: 1.9 min min Diagnostic fluoroscopy Total fluoroscopy dose: 260 dose: 260 mGy mGy Contrast Material Contrast Material Type Amount (ml) Isovue 300 96 Entry Location Entry Primary Successful Side Size Upsize Upsize Entry Closure Succes sful Closure Location (Fr) 1 (Fr) 2 (Fr) Remarks Device Remarks Femoral Left 5 Fr Exoseal artery Estimated blood loss: 5 ml Diagnostic catheters Device Type Used For End Catheter Placement DIAGNOSTIC UF 5Fr Multi-vessel catheter ([id number]) Angiography Procedure Complications No complications Procedure Medications Medication Administration Route Dosage Oxygen etCO2 Nasal cannula 2 l/min Lidocaine 2% added to field 20 Heparin Flush Bag added to field 2 bags (1000units/500ml NS) 0.9% NaCl I.V. 100 ml/hr Versed I.V. 1 mg Fentanyl I.V. 50 mcg Versed I.V. 1 mg Fentanyl I.V. 50 mcg Versed I.V. 1 mg Fentanyl I.V. 50 mcg Hemodynamics Rest BSA: 1.94 (m2) HGB: 16 (g/dl) O2 Consumption: Estimated: 227.16 (ml/min) O2 Cons umption indexed: Estimated:117.09 (ml/min/m) Heart Rate: 68 (bpm) Snapshots Pre Cath Intra NCS Post Cath Vital Signs Time Heart Resp SPO2 etCO2 NIBP (mmHg) Rhythm Pain Sedation Rate (ipm) (%) (mmHg) Status Level (bpm) 9:16:09 72 26 100 17.9 169/95(135) NSR 0 (11) 10(A) , No pain 9:20:27 73 22 99 22.4 141/83(109) NSR 0 (11) 10(A) , No pain 9:24:43 72 19 97 23.9 130/76(103) NSR 0 (11) 10(A) , No pain 9:28:59 70 18 97 26.9 118/72(101) NSR 0 (11) 10(A) , No pain 9:33:11 69 16 96 28.4 129/68(104) NSR 0 (11) 9(A) , No pain 9:37:23 68 14 97 30.7 126/76(103) NSR 0 (11) 9(A) , No pain 9:41:35 71 12 96 33.7 114/69(93) NSR 0 (11) 9(A) , No pain 9:45:45 72 13 96 32.9 115/66(97) NSR 0 (11) 9(A) , No pain 9:49:51 70 15 98 26.2 132/84(118) NSR 0 (11) 10(A) , No pain Medications Time Medication Route Dose Verified Delivered Reason Notes Effe ctiveness by by 9:18:11 Oxygen etCO2 2 Angel Buffie used for Nasal l/min Naveen Rodrigues RN procedure cannula 9:20:17 Lidocaine 2% added 20ml Angel Angel for local to vial Naveen Hodge MD anesthetic field 9:20:24 Heparin Flush added 2 Angel Angel used for Bag to bags Naveen Hodge MD procedure (1000units/500ml field NS) 9:20:35 0.9% NaCl I.V. 100 Angel Buffie Per ml/hr Naveen Rodrigues RN physician 9:21:49 Versed I.V. 1 mg Angel Buffie for Naveen Rodrigues RN sedation 9:21:55 Fentanyl I.V. 50 Angel Buffie for mcg Naveen Rodrigues RN sedation 9:31:34 Versed I.V. 1 mg Angel Buffie for Naveen Rodrigues RN sedation 9:31:38 Fentanyl I.V. 50 Angel Buffie for mcg Naveen Rodrigues RN sedation 9:37:44 Versed I.V. 1 mg Angel Buffie for Naveen Rodrigues RN sedation 9:37:48 Fentanyl I.V. 50 Angel Buffie for mcg Naveen Rodrigues RN sedation Procedure Log Time Note 8:45:58 Informed consent obtained and on chart 8:46:17 Diagnostic Cath Status : Elective 8:49:15 Arrival Date: 05/14/2020 12:00:00 AM 8:49:15 Admit Source: Other 8:49:19 Insurance Payor : Private health insurance 8:49:39 Patient Height : 67 inches 8:49:42 Patient Weight : 180.98 lbs 8:49:55 ACC Patient presents with Stable Angina CCS Anginal Class 2--Slight limitation of ordinary activity. 8:49:58 Procedure Status Elective Heart Cath (OP). 8:50:00 Time tracking: Regular hours (M-F 7:00 - 5:00) 8:50:05 Plan of Care:Hemodynamics will remain stable., Cardiac rhythm will remain stable., Comfort level will be maintained., Respiratory function will remain adequate., Patient/ family verbilizes understanding of procedure., Procedure tolerated without complication., Recovers from procedure without complications.. 8:50:11 H&P Date Dictated: 04/24/2020 Within 30 days and on chart.. 8:50:12 Pre-procedure instructions explained to patient. 8:50:13 Pre-op teaching completed and patient verbalized understanding. 8:50:15 Patient NPO since Midnight. 8:50:21 Patient allergic to No known allergies 8:50:27 Stress Test: no; N/A ? 8:50:28 Alarms reviewed by R. N. 8:50:29 Sharps counted by scrub and verified by R.N. 9:04:30 Matilde Rodrigues RN sent for patient. Start room use. 9:05:04 Lab Result : BUN 9 mg/dl 9:05:04 Lab Result : Hemoglobin 16 g/dl 9:05:04 Lab Result : eGFR NONAFRICAN 90 ml/min 9:05:04 Lab Result : Creatinine 0.7 mg/dl 9:05:36 Risk of Mortality: 0.1 9:05:39 Risk of blood transfusion: 0.2 9:05:44 Risk of YO: 2.8 9:05:49 1) 90+ Normal kidney functon but urine findings or structural abnormalities or genetic trait point to kidney disease. 9:05:53 Maximum allowable contrast dose (3.7 X eGFR X 0.75)250 ml. 9:09:03 Patient received from Pre/Post Procedure Room to CCL 1 Alert and oriented. Tansferred to table in Supine position. 9:09:04 Warm blankets applied, and berto hugger turned on for patient comfort. 9:09:04 Correct patient and procedure confirmed by team. 9:09:05 ECG and BP/O2 sat monitors applied to patient. 9:14:55 Procedure type changed to Cath procedure, Sedation Charges, Moderate Sedation 25-39 minutes, Peripheral Cath Diagnostic Procedure, Roll Tender Peripheral Procedures, AFRO Diagnostic 9:15:00 Vital chart was started 9:15:01 Full Disclosure recording started 9:15:08 Is the patient allergic to Iodine/contrast media? No. 9:15:10 Was the patient premedicated? Yes 9:15:11 Is patient on blood thinner?Yes 9:15:13 ACC The patient was administered the following blood thiners within the last 24 hours: ACCPlavix 9:15:16 Patient diabetic? No. 9:15:17 If diabetic: On Metformin? N/A 9:15:19 ----Pre-sedation anethsthesia assessment.---- 9:15:22 Previous problem with sedation/anesthesia? No ? 9:15:25 Snore? Yes 9:15:34 Airway obstruction? Yes COPD 9:15:39 Dentures? No ? 9:15:40 Sticks out tongue? Yes 9:15:41 Opens mouth fully? Yes 9:15:43 Deviated septum? No 9:15:44 Sleep apnea? No 9:15:50 Patient pain scale 0/10 ?. 9:15:56 IV patent on arrival in left antecubital with 0.9% NaCl at [facility]. 9:16:01 Bilateral groins area was prepped with chlora-prep and draped in sterile fashion 9:18:00 Baseline sample Acquired. 9:18:04 Rhythm: sinus rhythm 9:18:11 Oxygen 2 l/min etCO2 Nasal cannula was administered by Matilde Rodrigues RN; used for procedure; Verbal order read back and verified. 9:18:50 Physician arrived 9:18:50 --------ALL STOP TIME OUT------ 9:18:51 Final Timeout: patient, procedure, and site verified with staff and physician. All members of the team are in agreement. 9:18:53 Bilateral groins site verified by team. 9:18:56 Fire Safety Assessment: A--An alcohol-based skin anteseptic being used preoperatively., C--Open oxygen or nitrous oxide is being used., D--An ESU, laser, or fiber-optic light is being used. 9:19:02 Physical assessment completed. ASA score P 2 - A patient with mild systemic disease as per Angel Hodge MD. 9:19:05 Sedation plan: IV Moderate Sedation Medication:Versed, Fentanyl 9:20:17 Lidocaine 2% 20ml vial added to field was administered by Angel Hodge MD; for local anesthetic; Verbal order read back and verified. 9:20:24 Heparin Flush Bag (1000units/500ml NS) 2 bags added to field was administered by Angel Hodge MD; used for procedure; Verbal order read back and verified. 9:20:35 0.9% NaCl 100 ml/hr I.V. was administered by Matilde Rodrigues RN; Per physician; Verbal order read back and verified. 9:21:49 Versed 1 mg I.V. was administered by Matilde Rodrigues RN; for sedation; Verbal order read back and verified. 9:21:55 Fentanyl 50 mcg I.V. was administered by Matilde Rodrigues RN; for sedation; Verbal order read back and verified. 9:26:51 Use device set CATH PACK 9:26:52 ACIST Syringe (02857) opened to sterile field. 9:26:53 ACIST Hand Control (50483) opened to sterile field. 9:26:53 ACIST Manifold (06862) opened to sterile field. 9:26:53 Medline Cath Pack ([id number]) opened to sterile field. 9:26:54 Bag Decanter (2002S) opened to sterile field. 9:26:56 EMERALD Guide Wire (536-887) opened to sterile field. 9:27:17 SHEATH 5FR Neotsu ([id number]) opened to sterile field. 9:28:50 Zero performed for pressure channel P1 9:29:04 Zero performed for pressure channel P1 9:31:00 Procedure started. 9:31:34 Versed 1 mg I.V. was administered by Matilde Rodrigues RN; for sedation; Verbal order read back and verified. 9:31:38 Fentanyl 50 mcg I.V. was administered by Matilde Rodrigues RN; for sedation; Verbal order read back and verified. 9:35:00 Local anesthetic to left femerol artery with Lidocaine 2% by Angel Hodge MD.INITIAL ACCESS ONLY 9:36:37 A 5 Fr sheath was inserted into the Left Femoral artery 9:36:52 A DIAGNOSTIC UF 5Fr catheter ([id number]) was advanced over the wire and used for Multi-vessel Angiography. 9:37:44 Versed 1 mg I.V. was administered by Matilde Rodrigues RN; for sedation; Verbal order read back and verified. 9:37:48 Fentanyl 50 mcg I.V. was administered by Matilde Rodrigues RN; for sedation; Verbal order read back and verified. 9:43:19 Abdominal angiogram w/ runoff was performed. 9:44:39 Injector settings: Ml/sec: 5, Volume: 15, 9:47:34 Catheter removed. 9:47:49 EXOSEAL 5Fr (EX500) opened to sterile field. 9:48:00 Sheath removed intact; hemostasis achieved with Exoseal to the Left Femoral artery. 9:48:02 Procedure ended.(Physican Out) 9:48:32 Fluoroscopy time 01.90 minutes. 9:48:37 Flurop Dose total: 260 9:48:37 Fluoroscopy dose: 260 mGy 9:48:43 Dose Area Product 87479 mGy/cm. 9:48:49 Contrast amount:Isovue 300 96ml. 9:49:57 Maximum allowable dose exceeded? No. 9:49:58 Sharps counted by scrub and verified by R.N. 9:50:00 Insertion/operative site no bleeding no hematoma. 9:50:04 Post-op/insertion site Left Femoral artery dressed using a 4 x 4 and Tegaderm. 9:50:12 Post left femerol artery:stable 9:50:14 Post Procedure Pulses reassessed and unchanged 9:50:17 Post procedure rhythm: unchanged. 9:50:20 Estimated blood loss: 5 ml 9:50:22 Post procedure instruction explained to patient.Patient verbalizes understanding. 9:50:22 Patient needs reinforcement of post procedure teaching. 9:50:23 Procedure and supply charges have been captured, reviewed, submitted and are correct. 9:50:28 Procedure Complication : No complications 9:50:30 Vital chart was stopped 9:50:35 [facility] Findings: MVD- MD will discuss options w/ pt 9:50:39 Operative report dictated upon procedure completion. 9:50:40 See physician's report for complete and final results. 9:50:43 Report given to Pre/Post Procedure Room. 9:50:48 Patient transfered to Pre/Post Procedure Room with Stretcher. 9:50:51 Procedure ended. 9:50:51 Full Disclosure recording stopped 9:50:54 End room use (Document Last) Device Usage Item Name Manufacture Quantity Catalog Hospital Part Current Minimal L ot# / Number Charge Number Stock Stock Serial# Code ACIST Acist 1 03731 [id number] [id number] 20 Syringe Medical (47042) Systems Inc ACIST Hand Acist 1 99266 454009 490028 051844 5 Control Medical (84775) Systems Inc ACIST Acist 1 20778 490926 968461 269516 5 Manifold Medical (46222) Systems Inc Medline Medline 1 [id number] 142653 50876 053154 5 Cath Pack ([id number]) Bag Microtek 1 314894 97594 921008 5 Decanter Medical Inc. () EMERALD Cardinal 1 502-455 227044 359782 702347 5 Guide Wire Health (502-455) SHEATH 5FR Terumo 1 KET592 473282 423303 489026 5 Neotsu (LCE988) DIAGNOSTIC Cardinal 1 [id number] 920160 865546 870101 10 UF 5Fr Health catheter ([id number]) EXOSEAL 5Fr Cardinal 1 EX500 625408 549356 317802 10 (EX500) Health Signature Audit [place] Stage Time Signature Unsigned Intra-Procedure 05/14/2020 Josselin Marrero 9:56:10 AM RT(R) Intra-Procedure 05/14/2020 Matilde Rodrigues RN 9:56:32 AM Intra-Procedure 05/14/2020 Angel Hodge MD 9:56:58 AM [facility] [address] [place] [address]
[2020-05-14] MEDS ORDERED: PLAVIX75 MG PO (07:54)
[2020-05-14] MEDS ORDERED: TOPROL XL100 MG PO (07:54)
[2020-05-14] MEDS ORDERED: CIALIS2.5 MG PO (07:55)
[2020-05-14 08:17] VITALS: BP 157/81; Ht 170.2 cm; Wt 82.1 kg
[2020-05-14 08:31] LABS: ALT (SGPT) 114 U/L (10-68); CALC OSMOLALITY 279 mosm/kg (275-300); CALCIUM 8.9 mg/dL (8.5-10.1); CARBON DIOXIDE 23.6 mmol/L (21.0-32.0); CHLORIDE - SERUM 104 mmol/L (98-107); CHOL - HDL RATIO 2.1 ratio (2.3-4.9); CHOLESTEROL, TOTAL 153 mg/dL (0-200); CREATININE - SERUM 0.7 mg/dL (0.6-1.3); GLUCOSE 98 mg/dL (74-106); HDL CHOLESTEROL 72 mg/dL (32-96); LDL CHOLESTEROL 70 mg/dL (0-100); POTASSIUM - SERUM 3.8 mmol/L (3.5-5.1); SODIUM 141 mmol/L (136-145); TRIGLYCERIDE 55 mg/dL (30-200); UREA NITROGEN 9 mg/dL (7-18); eGFR NON AFRICAN AMERICAN > 90 mL/min (90-120)
[2020-05-14 08:52] LABS: BASOPHILS 1.3 % (0-2); EOSINOPHILS 5.1 % (0-7); HEMATOCRIT 46.1 % (42.0-54.0); IMMATURE GRANULOCYTES 0.2 % (0-5); LYMPHOCYTE ABS# 1.73 10x3/uL (1.32-3.57); LYMPHOCYTES 38.6 % (15-50); MCH 35.7 pg (26.0-34.0); MCHC 34.7 g/dL (31.0-37.0); MCV 102.9 fL (80.0-100.0); MEAN PLATELET VOLUME 10.9 fL (7.4-10.4); NEUTROPHILS 44.8 % (40-80); PLATELET COUNT 135 10x3/uL (130-400); RBC 4.48 10x6/uL (4.20-6.10); RDW 12.5 % (11.5-14.5); WBC 4.5 10x3/uL (4.8-10.8)
--- NOTE | 2020-05-14 10:02 | NUR ---
ARRIVES TO ROOM 7 VIA STRETCHER S/P AFRO. PT IS AAOX3, SEE TAIL RIPPER, IV INFUSING PER ORDERES, DENIES PAIN OR NEEDS, DENIES BATHROOM NEEDS, CALL LIGHT WITHIN REACH
--- NOTE | 2020-05-14 10:17 | NUR ---
RESTING QUIETLY , VSS, SR , LEFT GROIN SOFT WITH OUT BLEEDING OR OOZING , EXTREMITY WARM AND SENSATION INTACT, CAP REFILL WNL, WEAK POST TIBIAL PULSE TO LEFT AND RIGHT. PT DENIES PAIN OR NEEDS AT THIS TIME, IV INFUSING PER ORDERS, SPOUSE AT BEDSIDE, CALL LIGHT WITHIN REACH.
--- NOTE | 2020-05-14 10:30 | NUR ---
DR CONCEPCION AT BEDSIDE NO NEW ORDERS, REVIEWED FINDINGS WITH PT AND SPOUSE
--- NOTE | 2020-05-14 10:45 | NUR ---
LEFT GROIN SOFT OPSITE C/D/I, NO BLEEDING OR OOZING NOTED, POST TIBIAL PULSE PALPABLE, DENIES PAIN OR NEEDS , IV INFUSING PER ORDERS, PO FLUIDS OFFERED, DENIES BATHROOM NEEDS, UP DATED ON PLAN OF CARE
--- NOTE | 2020-05-14 11:00 | NUR ---
PT PLACED IN SEMI FOWLERS POSITION , VSS, SR WITH NO ECTOPY, IV INFUSING PER ORDERS, LEFT GROIN SOFT OPSITE C/D/I, NO BLEEDING OR OOZING NOTED, NO PALPABLE HEMATOMA, PEDAL PULSE PALPABLE, CAP REFILL WNL, DENIES PAIN OR NEEDS, CALL LIGHT WITHIN REACH, SPOUSE AT BEDSIDE.
--- NOTE | 2020-05-14 11:30 | NUR ---
NO PAIN OR NEEDS, VSS, SR, LEFT GROIN SOFT WITH NO PALPABLE HEMATOMA, OPSITE C/D/I, NO BLEEDING OR OOZING NOTED, POST TIBIAL PULSE PALPABLE, CAP REFILL WNL, MOVES ALL DIGITS. 22G IV LEFT FOREARM REMOVED PER ORDERS CATHETER INTACT 2 X 2 DRESSING PLACED. DISCHARGE INSTRUCTIONS REVIEWED WT PT AND SPOUSE VERBALIZED UNDERSTANDING. QUESTIONS AND CONCERNS ADDRESSED, CALL LIGHT WITHIN REACH
--- NOTE | 2020-05-14 11:45 | NUR ---
PT UP AND AMBULATES TO BATHROOM VOIDS WITHOUT DIFFICULTY, LEFT GROIN SOFT WITHOUT OOZING OR BLEEDING , NO PALPABLE HEMATOMA, PEDAL PULSE PALPABLE, OPSITE C/D/I, VSS, PT DENIES PAIN OR NEEDS
--- NOTE | 2020-05-14 12:00 | NUR ---
PT DISCHARGED PER ORDERS , PT HAS NO NEEDS OR PAIN, LEFT GROIN DRESSING C/D/I, NO PALPABLE HEMATOMA , POST TIBIAL PULSE PALPABLE, PT TAKEN TO PRIVATE VEHICLE VIA WHEELCHAIR
== END 2020-05-14 12:00 | disposition home or self-care (01) ==
LOC: D.CATH 07:01
PROVIDERS: ATTEND Internal Medicine Cardiovascular Disease
DX: I70.213 Atherosclerosis of native arteries of extremities with intermittent claudication, bilateral legs (principal); R06.00 Dyspnea, unspecified; I25.10 Atherosclerotic heart disease of native coronary artery without angina pectoris

== ENCOUNTER 2020-06-14 06:58 | Day surgery (SDC) | payer BC ==
[~2020-06-14] VITALS: Ht 170.2 cm; Wt 81.8 kg
--- NOTE | ~2020-06-14 | HEMODYNAMI ---
PATIENT:TISH TELLES MEDICAL RECORD: [id number] : 60 LOCATION:[facility] ADMISSION DATE: 06/14/20 Generatedon:111:45 Patient name: TISH TELLES Patient #: [id number] SSN: [id number] : 1960 Date of study: 06/14/2020 Page: Of Hemodynamic Procedure Report Patient Data Patient Demographics Procedure consent was obtained First Name: TISH Gender: Male Last Name: KOKI : 1960 [facility] Initial: VASQUEZ Age: 59 year(s) Patient #: [id number] Race: SSN: [id number] Additional ID: [id number] Contact details [address]: [address] [place] [address] State: [place] City: [place] Zip code: [address] Past Medical History History of disease Date Diagnosis Comments CAD Chronic lung disease->COPD Peripheral vascular disease Allergies: No known allergies Admission Admission Data Admission Date: 06/14/2020 Admission Time: 6:58 Procedure Procedure Types Cath Procedure Peripheral Cath Diagnostic Procedure Abd/Extremity Extremities Bilat Lower Extremity Procedure Description Procedure Date Procedure Date: 06/14/2020 Procedure Start Time: 10:12 Procedure Staff Name Function Patt Burnham RT Community Life Director Darell Wright RT Scrub Yung Salazar MD Performing Physician Heike Fuller RN Nurse Gisele Mcqueen RN Nurse Procedure Data Cath Procedure Fluoroscopy Diagnostic fluoroscopy Total fluoroscopy Time: time: 24.5 min 24.5 min Diagnostic fluoroscopy Total fluoroscopy dose: 725 dose: 725 mGy mGy Contrast Material Contrast Material Type Amount (ml) Isovue 300 75 Diagnostic catheters Device Type Used For End Catheter Placement DIAGNOSTIC IMT 5Fr Catheter ([id number]) Merit Impress KA2 5Fr 65CM catheter ([id number]) Procedure Medications Medication Administration Route Dosage Heparin Flush Bag added to field 2 bags (1000units/500ml NS) Lidocaine 1% added to field 20 Versed I.V. 2 mg Fentanyl I.V. 100 mcg Heparin Bolus I.V. 5000 units Benadryl I.V. 50 mg Versed I.V. 1 mg Fentanyl I.V. 50 mcg Heparin Bolus I.V. 2500 units Versed I.V. 1 mg Fentanyl I.V. 50 mcg Versed I.V. 1 mg Fentanyl I.V. 50 mcg Fentanyl I.V. 50 mcg Versed I.V. 1 mg Hemodynamics Rest Heart Rate: 67 (bpm) Snapshots Pre Cath Intra NCS Post Cath Vital Signs Time Heart Resp SPO2 etCO2 NIBP (mmHg) Rhythm Pain Sedation Rate (ipm) (%) (mmHg) Status Level (bpm) 10:00:15 69 18 96 27.2 183/99(135) NSR 0 (11) 10(A) , No pain 10:04:38 65 20 99 24.9 169/107(145) NSR 0 (11) 10(A) , No pain 10:08:58 63 19 99 29.5 167/83(130) NSR 0 (11) 10(A) , No pain 10:13:16 62 18 99 27.9 170/90(144) NSR 0 (11) 10(A) , No pain 10:17:36 67 18 98 29.5 161/90(123) NSR 0 (11) 10(A) , No pain 10:22:35 63 17 96 35.5 Measuring NSR 0 (11) 8(A) , No pain 10:22:47 68 16 95 35.5 178/95(139) NSR 0 (11) 8(A) , No pain 10:26:37 65 11 95 39.2 154/77(120) NSR 0 (11) 8(A) , No pain 10:30:53 63 10 95 41.5 137/76(105) NSR 0 (11) 8(A) , No pain 10:35:05 63 9 96 42.3 124/74(102) NSR 0 (11) 8(A) , No pain 10:39:12 63 10 95 41.5 138/72(107) NSR 0 (11) 8(A) , No pain 10:43:24 63 10 95 40.8 127/75(94) NSR 0 (11) 8(A) , No pain 10:47:32 61 11 95 40 128/76(97) NSR 0 (11) 8(A) , No pain 10:51:40 61 12 95 37.8 132/78(95) NSR 0 (11) 8(A) , No pain 10:55:50 59 11 96 34.7 120/74(90) NSR 0 (11) 8(A) , No pain 10:59:56 61 12 96 36.3 120/74(89) NSR 0 (11) 8(A) , No pain 11:04:55 60 14 96 33.2 157/80(122) NSR 0 (11) 8(A) , No pain 11:09:11 62 14 97 34.7 144/81(108) NSR 0 (11) 8(A) , No pain 11:13:23 64 14 96 31 159/84(132) NSR 0 (11) 8(A) , No pain 11:17:39 61 15 96 34.7 167/88(122) NSR 0 (11) 8(A) , No pain 11:21:55 61 10 96 40.8 146/81(113) NSR 0 (11) 8(A) , No pain 11:26:03 64 12 95 40 162/99(146) NSR 0 (11) 8(A) , No pain 11:30:21 61 10 96 42.4 156/85(114) NSR 0 (11) 8(A) , No pain 11:35:20 60 9 96 40 Measuring NSR 0 (11) 8(A) , No pain 11:35:34 64 10 94 43 176/99(155) NSR 0 (11) 8(A) , No pain 11:39:56 64 10 96 42.3 158/85(109) NSR 0 (11) 8(A) , No pain 11:43:56 41.6 No Cuff NSR 0 (11) 8(A) , No pain Medications Time Medication Route Dose Verified Delivered Reason Notes Effe ctiveness by by 9:48:34 Heparin Flush added 2 Yung Barragan used for Bag to bags Martin Salazar procedure (1000units/500ml field MD MANJARREZ NS) 9:48:45 Lidocaine 1% added 20ml Yung Barragan for local to vial Martin Salazar anesthetic field MD MANJARREZ 10:17:32 Versed I.V. 2 mg Yung Heike for Martin Jonny RN sedation 10:17:43 Fentanyl I.V. 100 Yung Heike for mcg Martin Jonny RN sedation 10:20:20 Heparin Bolus I.V. 5000 Yung Heike units Martin Jonny RN MD 10:20:29 Benadryl I.V. 50 mg Yung Heike Martin Jonny RN MD 10:22:41 Versed I.V. 1 mg Yung Heike for Martin Jonny RN sedation MD 10:22:50 Fentanyl I.V. 50 Yung Heike for mcg Martin Jonny RN sedation MD 10:50:46 Heparin Bolus I.V. 2500 Yung Heike units Martin Jonny RN MD 11:06:03 Versed I.V. 1 mg Yung Heike for Martin Jonny RN sedation MD 11:06:12 Fentanyl I.V. 50 Yung Heike for mcg Martin Jonny RN sedation MD 11:16:22 Versed I.V. 1 mg Yung Heike for Martin Jonny RN sedation 11:16:29 Fentanyl I.V. 50 Yung Heike for mcg Martin Jonny RN sedation 11:24:18 Fentanyl I.V. 50 Yung Heike for mcg Martin Jonny RN sedation 11:24:25 Versed I.V. 1 mg Yung Heike for Martin Jonny RN sedation Procedure Log Time Note 8:10:14 Use device set IR Diagnostic 9:47:28 Use device set IR Diagnostic 9:48:34 Heparin Flush Bag (1000units/500ml NS) 2 bags added to field was administered by Yung Salazar MD; used for procedure; Verbal order read back and verified. 9:48:45 Lidocaine 1% 20ml vial added to field was administered by Yung rose MD; for local anesthetic; Verbal order read back and verified. 9:48:51 AMPLATZ Super Stiff 75cm wire ([id number]) opened to sterile field. 9:48:54 BENTSON 145cm wire ([id number]) opened to sterile field. 9:48:55 SHEATH 5FR Mcintire (SQI512) opened to sterile field. 9:48:57 Micropuncture VSI 4FR kit opened to sterile field. 9:48:58 ROADRUNNER .035 260 glide wire (O82393) opened to sterile field. 9:48:59 MERA 260 wire (G56508) opened to sterile field. 9:49:00 Tegaderm 4 x 4 (1626W) opened to sterile field. 9:49:01 Sterile Angiographic Pack opened to sterile field. 9:49:07 Bag Decanter (2001S) opened to sterile field. 9:49:14 - 9:49:25 Time tracking: Regular hours (M-F 7:00 - 5:00) 9:49:46 Plan of Care:Hemodynamics will remain stable., Cardiac rhythm will remain stable., Comfort level will be maintained., Respiratory function will remain adequate., Patient/ family verbilizes understanding of procedure., Procedure tolerated without complication., Recovers from procedure without complications.. 9:49:55 Patient received from Outpatients to IR Alert and oriented. Tansferred to table in Supine position. 9:49:59 Signed procedure consent form obtained from patient. 9:50:19 H&P Date Dictated: 06/14/2020 Within 30 days and on chart., H&P Addendum completed by physician on day of procedure. (MUST COMPLETE FOR ALL OUTPATIENTS). 9:50:22 Pre-procedure instructions explained to patient. 9:50:22 Pre-op teaching completed and patient verbalized understanding. 9:50:25 Family in waiting room. 9:50:27 Patient NPO since Midnight. 9:50:38 Patient allergic to No known allergies 9:50:46 Is the patient allergic to Iodine/contrast media? Yes. 9:53:27 Is patient on blood thinner?Yes 9:53:32 Patient diabetic? No. 9:53:44 - 9:53:45 ----Pre-sedation anethsthesia assessment.---- 9:53:54 Previous problem with sedation/anesthesia? No ? 9:53:57 Snore? No 9:53:59 Sleep apnea? No 9:54:03 Deviated septum? No 9:54:06 Opens mouth fully? Yes 9:54:08 Sticks out tongue? Yes 9:54:12 Airway obstruction? Yes copd 9:54:19 Dentures? No ? 9:54:22 - 9:54:24 Alarms reviewed by Lissa Beckham 9:54:34 A DIAGNOSTIC IMT 5Fr Catheter ([id number]) was advanced over the wire an d used for . 9:54:58 Pre procedure: right dorsailis pedis pulse Doppler 9:55:03 Pre procedure: left dorsailis pedis pulse Doppler 9:55:09 Pre procedure: right posterior tibial pulse Doppler 9:55:13 Pre procedure: left posterior tibial pulse Doppler 9:55:20 Right groin area was prepped with chlora-prep and draped in sterile fashion 9:55:24 - 9:55:31 Fire Safety Assessment: A--An alcohol-based skin anteseptic being used preoperatively., C--Open oxygen or nitrous oxide is being used. 9:55:36 1) 90+ Normal kidney functon but urine findings or structural abnormalities or genetic trait point to kidney disease. 9:59:06 ECG and BP/O2 sat monitors applied to patient. 9:59:08 Vital chart was started 9:59:09 Baseline sample Acquired. 9:59:18 Baseline sample Acquired. 9:59:22 Full Disclosure recording started 9:59:23 - 9:59:32 Baseline sample Acquired. 10:: Physician arrived 10:: --------ALL STOP TIME OUT------ ::28 Final Timeout: patient, procedure, and site verified with staff and physician. All members of the team are in agreement. 10:12:04 Procedure started. 10:12:14 Local anesthetic to right femoral artery with Lidocaine 1% by Yung Salazar MD.INITIAL ACCESS ONLY 10:17:32 Versed 2 mg I.V. was administered by Heike Fuller RN; for sedation; Verbal order read back and verified. 10:17:43 Fentanyl 100 mcg I.V. was administered by Heike Fuller RN; for sedation; Verbal order read back and verified. 10:20:20 Heparin Bolus 5000 units I.V. was administered by Heike Fuller RN; ; Verbal order read back and verified. 10:20:29 Benadryl 50 mg I.V. was administered by Heike Fuller RN; ; Verbal orde r read back and verified. 10:22:41 Versed 1 mg I.V. was administered by Heike Fuller RN; for sedation; Verbal order read back and verified. 10:22:50 Fentanyl 50 mcg I.V. was administered by Heike Fuller RN; for sedation ; Verbal order read back and verified. 10:26:59 SHEATH 6FR Destination (RSR01) opened to sterile field. 10:28:22 CXI Catheter 90cm (Q76770) opened to sterile field. 10:31:35 CHOICE PT Extra Support J 300cm guide wire ([id number]) opened to steril e field. 10:40:41 INFLATOR BasixTOUCH (HN4343) opened to sterile field. 10:41:27 Inflate balloon Inflation number: 1 A SHOCKWAVE BALLOON 6 X 60 ([id number]) was prepped and advanced across the Undefined1 , then inflated . 10:45:42 A Merit Impress KA2 5Fr 65CM catheter ([id number]) was advanced over the wire and used for . 10:50:46 Heparin Bolus 2500 units I.V. was administered by Heike Fuller RN; ; Verbal order read back and verified. 10:53:28 Viance Crossing Catheter Standard ([id number]) opened to sterile field. 11:06:03 Versed 1 mg I.V. was administered by Heike Fuller RN; for sedation; Verbal order read back and verified. 11:06:12 Fentanyl 50 mcg I.V. was administered by Heike Fuller RN; for sedation ; Verbal order read back and verified. 11:16:22 Versed 1 mg I.V. was administered by Heike Fuller RN; for sedation; Verbal order read back and verified. 11:16:29 Fentanyl 50 mcg I.V. was administered by Heike Fuller RN; for sedation ; Verbal order read back and verified. 11:24:18 Fentanyl 50 mcg I.V. was administered by Heike Fuller RN; for sedation ; Verbal order read back and verified. 11:24:25 Versed 1 mg I.V. was administered by Heike Fuller RN; for sedation; Verbal order read back and verified. 11:36:48 Procedure ended.(Physican Out) 11:38:27 ANGIOSEAL-[facility] PLUS 6 FR opened to sterile field. 11:39:12 Fluoroscopy time 24.50 minutes. 11:39:16 Fluoroscopy dose: 725 mGy 11:39:16 Flurop Dose total: 725 11:39:21 Contrast amount:Isovue 300 75ml. 11:39:24 Procedure and supply charges have been captured, reviewed, submitted an d are correct. 11:44:52 Report given to Outpatients. 11:45:22 Vital chart was stopped Intervention Summary Intervention Notes Time ActionType Lesion and Equipment Used Action# Pressure Duration Attributes 10:41:27 Inflate Undefined1 SHOCKWAVE BALLOON 1 0 00:00 balloon 6 X 60 ([id number]) Device Usage Item Name Manufacture Quantity Catalog Number Hospital Part Curr ent Minimal Lot# / Charge Number Stock Stock Serial# Code AMPLATZ Super Lucan 1 [id number] 246277 879934 4788 77 5 Stiff 75cm wire Scientific ([id number]) BENTSON 145cm Cook Medical 1 N82587 075657 0863 85 5 wire (F40614) SHEATH 5FR Terumo 1 VYW811 263997 703001 7340 19 5 Mcintire (SWL108) Micropuncture VSI VSI VASCULAR 1 7266V 968890 0570 39 [address]UTIONS ROADRUNNER .035 [employer] 1 K67673 853690 282684 9756 78 5 260 glide wire (G75971) MERA 260 wire [employer] 1 D98294 864164 997133 6701 92 5 (Q16276) Tegaderm 4 x 4 3M 1 1626W [id number] 095193 4618 80 5 (1626W) Sterile Cardinal 1 [id number] 948382 2024 03 5 Angiographic Pack Health Bag Decanter Microtek 1 2001S 900758 84830 9828 21 5 () Medical Inc. DIAGNOSTIC IMT Lucan 1 [id number] 755345 073354 7534 2 5 5Fr Catheter Scientific ([id number]) SHEATH 6FR Terumo 1 RSR01 627551 79748 9994 18 5 Destination (RSR01) CXI Catheter 90cm Cook Oddcast 1 N84999 175889 454600 1336 37 5 [id number] (S04008) CHOICE PT Extra Lucan 1 [id number] 322830 076784 9852 72 5 Support J 300cm Scientific guide wire ([id number]) INFLATOR Merit 1 NT0173 831170 674207 3032 98 5 [facility] (NM3066) SHOCKWAVE BALLOON SHOCKWAVE 1 [id number] 990824 8609395 9999 89 1 6 X 60 MEDICAL ([id number]) Merit Impress KA2 Merit 1 [id number] 393906 9255 82 5 5Fr 65CM catheter Medical (30511VB8) Viance Crossing Medtronic 1 VNC-SD-150 898998 103541 2717 88 5 Catheter Standard (JTNPY059) [facility]GIOSEAL-[facility] 1 926599 691722 361165 4054 88 5 PLUS 6 FR Signature Audit [place] Stage Time Signature Unsigned Intra-Procedure 06/14/2020 Patt Burnham 11:45:16 AM RT(R) [facility] [address] [place] [address]
[~2020-06-14 06:58] MED LIST changes: +CIALIS2.5 MG PO; +TOPROL XL100 MG PO
[2020-06-14 07:16] LABS: BASOPHILS 0.9 % (0-2); EOSINOPHILS 6.7 % (0-7); HEMATOCRIT 46.6 % (42.0-54.0); HEMOGLOBIN 16.4 g/dL (13.5-17.5); LYMPHOCYTE ABS# 1.94 10x3/uL (1.32-3.57); LYMPHOCYTES 43.1 % (15-50); MCH 36.4 pg (26.0-34.0); MCHC 35.2 g/dL (31.0-37.0); MCV 103.3 fL (80.0-100.0); MEAN PLATELET VOLUME 10.2 fL (7.4-10.4); MONOCYTES 12.7 % (2-11); NEUTROPHIL ABS# 1.65 10x3/uL (1.78-5.38); NEUTROPHILS 36.6 % (40-80); PLATELET COUNT 131 10x3/uL (130-400); RBC 4.51 10x6/uL (4.20-6.10); RDW 12.1 % (11.5-14.5); WBC 4.5 10x3/uL (4.8-10.8)
[2020-06-14 07:28] LABS: APTT 29.2 SECONDS (22.8-39.4); INR 1.16 (0.85-1.17); PROTIME 13.7 SECONDS (11.6-15.0)
[2020-06-14 07:35] LABS: CALC OSMOLALITY 288 mosm/kg (275-300); CALCIUM 9.1 mg/dL (8.5-10.1); CHLORIDE - SERUM 108 mmol/L (98-107); CREATININE - SERUM 0.7 mg/dL (0.6-1.3); GLUCOSE 95 mg/dL (74-106); POTASSIUM - SERUM 4.1 mmol/L (3.5-5.1); SODIUM 146 mmol/L (136-145); UREA NITROGEN 7 mg/dL (7-18); eGFR NON AFRICAN AMERICAN > 90 mL/min (90-120)
[2020-06-14 09:07] VITALS: BP 157/88; Ht 170.2 cm; Wt 81.8 kg
[2020-06-14] MEDS ORDERED: ASPIRIN81 MG PO (09:23)
[2020-06-14] MEDS ORDERED: COZAAR100 MG PO (09:24)
[2020-06-14] MEDS ORDERED: TOPROL XL100 MG PO (09:24)
[2020-06-14] MEDS ORDERED: PLAVIX75 MG PO (09:25)
[2020-06-14] MEDS ORDERED: CIALIS2.5 MG PO (09:26)
--- NOTE | 2020-06-14 12:30 | NUR ---
1155 ARRIVED TO ROOM PT ASLEEP AND REPORT GIVEN BY MARTY SHEIKH IN IR. FAMILY AT BEDSIDE. B/P ELEVATED AND INCREASING. SPOT ON DRESSING AND MARKED. 1210 B/P INCREASING AND DR CARBALLO NOTIFIED IN IR. ORDERS GIVEN AND NOTED SPENCER HERE TO HOLD PRESSURE. 1125 MEDICATED FOR B/P IV. PT DENIES PAIN AND NEED TO URINATE. DOPPLER PULSES.
--- NOTE | 2020-06-14 15:30 | NUR ---
1530 VOIDED 200 IN URINAL. DOPPLER PULSES TO POSTERIOR TIBIA BUT NO DORSALIS PEDIS TO LEFT FOOT. DRESSING HAS NO NEW DRAINGE ICE PACK REFILLED AND 5LB SAND BAG MAINTAINDED PER IR
--- NOTE | 2020-06-14 15:31 | NUR ---
1400 ISSA CALLED AND NOTIFIED OF A 80MG LOVINOX SHOT. CLARIFIED WITH DR CARBALLO AND STATED TO HOLD LOVINOX SHOT.
--- NOTE | 2020-06-14 18:58 | NUR ---
1500 VS STABLE AND DOPPLER PULSES TO POSTERIOR TIBIA BUT NO DORSALIS PEDIS. FOOT WARM TO TOUCH. DRESSING WITH SMALL SEROUS DRAINAGE NOTED. SANDBAG MAINTAINED
--- NOTE | 2020-06-14 18:59 | NUR ---
1600 PT SITTING UP IN BED AND NO BLEEDING NOTED OR SWELLING. B/P 132/69.
== END 2020-06-14 16:40 | disposition home or self-care (01) ==
LOC: D.SP 06:58 → D.RAD 09:00 → D.SP 16:40
PROVIDERS: ATTEND Radiology Diagnostic Radiology
DX: I70.222 Atherosclerosis of native arteries of extremities with rest pain, left leg (principal)

== ENCOUNTER 2020-07-26 05:32 | Day surgery (SDC) | payer BC ==
[~2020-07-26] VITALS: Ht 170.2 cm; Wt 82.7 kg
--- NOTE | ~2020-07-26 | HEMODYNAMI ---
PATIENT:TISH TELLES MEDICAL RECORD: [id number] : 60 [id number] AD[facility]ION DATE: 07/26/20 Generatedon:110:09 Patient name: TISH TELLES Patient #: [id number] SSN: [id number] : 1960 Date of study: 07/26/2020 Page: Of Hemodynamic Procedure Report Patient Data Patient Demographics Procedure consent was obtained First Name: TISH Gender: Male Last Name: KOKI : 1960 [facility] Initial: VASQUEZ Age: 59 year(s) Patient #: [id number] Race: SSN: [id number] Additional ID: [id number] Contact details [address]: [address] [place] [address] State: [place] City: [place] Zip code: [address] Past Medical History History of disease Date Diagnosis Comments CAD Chronic lung disease->COPD Peripheral vascular disease Allergies: No known allergies Admission Admission Data Admission Date: 07/26/2020 Admission Time: 5:32 Procedure Procedure Types Cath Procedure Peripheral Cath Diagnostic Procedure Abd/Extremity Extremities Right Lower Ext Arterio Procedure Description Procedure Date Procedure Date: 07/26/2020 Procedure Start Time: 8:45 Procedure Staff Name Function Yung Salazar MD Performing Physician Patt Burnham RT Monitor DEANNA PANDEY RT Scrub Heike Fuller RN Nurse Gisele Mcqueen RN Nurse Procedure Data Cath Procedure Fluoroscopy Diagnostic fluoroscopy Total fluoroscopy Time: 0 time: 0 min min Diagnostic fluoroscopy Total fluoroscopy dose: 647 dose: 647 mGy mGy Contrast Material Contrast Material Type Amount (ml) Isovue 300 75 Diagnostic catheters Device Type Used For End Catheter Placement DIAGNOSTIC IMT 5Fr Catheter ([id number]) Procedure Medications Medication Administration Route Dosage Lidocaine 1% added to field 20 Heparin Flush Bag added to field 2 bags (1000units/500ml NS) Benadryl I.V. 50 mg Versed I.V. 2 mg Fentanyl I.V. 100 mcg Heparin Bolus I.V. 4000 units Versed I.V. 1 mg Fentanyl I.V. 50 mcg Heparin Bolus I.V. 2000 units Versed I.V. 1 mg Fentanyl I.V. 50 mcg Nitroglycerin IC/IA I.A. 300 mcg Fentanyl I.V. 100 mcg Hemodynamics Rest Heart Rate: 66 (bpm) Snapshots Pre Cath Intra NCS Post Cath Vital Signs Time Heart Resp SPO2 etCO2 NIBP (mmHg) Rhythm Pain Status Sedation Rate (ipm) (%) (mmHg) Level (bpm) 8:11:18 64 20 96 0 Measuring NSR 0 (11) , No 10(A) pain 8:11:33 64 23 96 0 150/83(120) NSR 0 (11) , No 10(A) pain 8:15:47 62 21 99 21.6 129/73(108) NSR 0 (11) , No 10(A) pain 8:19:59 66 20 100 24.6 139/77(96) NSR 0 (11) , No 10(A) pain 8:24:13 60 21 100 23.9 136/83(118) NSR 0 (11) , No 10(A) pain 8:28:25 60 21 100 23.9 132/82(120) NSR 0 (11) , No 10(A) pain 8:32:37 62 20 100 23.9 136/80(124) NSR 0 (11) , No 10(A) pain 8:36:50 62 21 100 23.9 137/81(116) NSR 0 (11) , No 10(A) pain 8:41:04 62 23 100 23.9 126/76(107) NSR 0 (11) , No 10(A) pain 8:45:14 60 22 100 25.4 127/76(114) NSR 0 (11) , No 10(A) pain 8:49:24 68 19 100 29.9 120/75(95) NSR 2 (11) , 9(A) Uncomfortable 8:54:21 69 13 96 33.6 137/81(122) NSR 0 (11) , No 8(A) pain 8:58:37 68 11 95 34.4 115/67(91) NSR 0 (11) , No 8(A) pain 9:02:45 67 12 94 34.4 114/70(86) NSR 0 (11) , No 8(A) pain 9:06:53 71 12 92 33.6 95/57(71) NSR 0 (11) , No 8(A) pain 9:10:57 69 11 91 32.1 94/58(71) NSR 0 (11) , No 8(A) pain 9:15:03 71 13 90 31.4 94/55(75) NSR 0 (11) , No 8(A) pain 9:19:06 113 27 93 23.9 94/61(85) NSR 0 (11) , No 8(A) pain 9:23:10 71 19 96 17.9 109/63(83) NSR 1 (11) , Very 8(A) mild 9:27:18 72 16 98 20.2 109/67(84) NSR 0 (11) , No 8(A) pain 9:31:25 73 14 97 21.6 97/65(88) NSR 0 (11) , No 8(A) pain 9:35:27 70 13 97 24.7 99/64(85) NSR 0 (11) , No 8(A) pain 9:39:33 70 12 96 29.2 99/58(73) NSR 0 (11) , No 8(A) pain 9:43:37 68 12 98 28.4 101/64(78) NSR 2 (11) , 8(A) Uncomfortable 9:48:34 69 12 100 11.9 115/67(96) NSR 4 (11) , 8(A) Distressing 9:52:40 66 10 100 31.4 113/73(91) NSR 0 (11) , No 8(A) pain 9:56:47 65 11 100 32.2 117/69(87) NSR 0 (11) , No 8(A) pain 10:00:53 66 9 99 33.7 115/78(97) NSR 0 (11) , No 8(A) pain 10:05:01 63 10 99 32.1 114/67(85) NSR 0 (11) , No 8(A) pain Medications Time Medication Route Dose Verified Delivered Reason Notes Effec tiveness by by 8:01:33 Lidocaine 1% added 20ml Yung Barragan for local to vial Martin Slaazar anesthetic field MD MANJARREZ 8:01:54 Heparin Flush added 2 Yung Barragan used for Bag to bags Martin Salazar procedure (1000units/500ml field MD MANJARREZ NS) 8:32:28 Benadryl I.V. 50 mg Yung Burroughs Per Martin Barahonar RN physician 8:46:29 Versed I.V. 2 mg Yung Burroughs for Martin Jonny RN sedation 8:46:41 Fentanyl I.V. 100 Yung Burroughs for mcg Martin Jonny RN sedation 8:51:46 Heparin Bolus I.V. 4000 Yung Heike Per units Martin Jonny RN physician 8:52:30 Versed I.V. 1 mg Yung Burroughs for Martin Jonny RN sedation 8:52:39 Fentanyl I.V. 50 Yung Heike for mcg Martin Jonny RN sedation 9:19:55 Heparin Bolus I.V. 2000 Yung Burroughs used for units Martin Barahonar metrology specialist 9:23:42 Versed I.V. 1 mg Yung Burroughs for Martin Jonny RN sedation 9:23:51 Fentanyl I.V. 50 Yung Burroughs for mcg Martin Jonny RN sedation 9:26:42 Nitroglycerin I.A. 300 Yung Barragan used for IC/IA mcg Martin Salazar procedure MD MANJARREZ 9:49:48 Fentanyl I.V. 100 Yung Barragan for pain mcg Martin Salazar MD, MD Procedure Log Time Note 7:55:16 Use device set IR Diagnostic 7:55:17 Bag Decanter (2002S) opened to sterile field. 7:55:18 Sterile Angiographic Pack opened to sterile field. 7:55:18 Tegaderm 4 x 4 (1626W) opened to sterile field. 8:01:33 Lidocaine 1% 20ml vial added to field was administered by Yung rose MD; for local anesthetic; Verbal order read back and verified. 8:01:54 Heparin Flush Bag (1000units/500ml NS) 2 bags added to field was administered by Yung Salazar MD; used for procedure; Verbal order read back and verified. 8:03:58 Time tracking: Regular hours (M-F 7:00 - 5:00) 8:09:06 Plan of Care:Hemodynamics will remain stable., Cardiac rhythm will remain stable., Comfort level will be maintained., Respiratory function will remain adequate., Patient/ family verbilizes understanding of procedure., Procedure tolerated without complication., Recovers from procedure without complications.. 8:09:14 Patient received from Outpatients to IR Alert and oriented. Tansferred to table in Supine position. 8:09:17 Signed procedure consent form obtained from patient. 8:09:21 ECG and BP/O2 sat monitors applied to patient. 8:09:30 Vital chart was started 8:09:35 Baseline sample Acquired. 8:09:38 Baseline sample Acquired. 8:09:41 Full Disclosure recording started 8:09:42 - 8:09:48 H&P Date Dictated: 07/26/2020 Within 30 days and on chart., H&P Addendum completed by physician on day of procedure. (MUST COMPLETE FOR ALL OUTPATIENTS). 8:09:50 Pre-procedure instructions explained to patient. 8:09:50 Pre-op teaching completed and patient verbalized understanding. 8:09:54 Family in waiting room. 8:09:56 Patient NPO since Midnight. 8:10:16 Patient allergic to No known allergies 8:10:25 Is the patient allergic to Iodine/contrast media? No. 8:10:35 Is patient on blood thinner?Yes 8:10:41 Patient diabetic? No. 8:10:44 ----Pre-sedation anethsthesia assessment.---- 8:10:48 Previous problem with sedation/anesthesia? No ? 8:10:52 Snore? No 8:10:53 Sleep apnea? No 8:10:55 Deviated septum? No 8:10:57 Opens mouth fully? Yes 8:10:59 Sticks out tongue? Yes 8:11:08 Airway obstruction? Yes heart disease 8:11:14 Dentures? No ? 8:11:17 - 8:12:33 Micropuncture VSI 4FR kit opened to sterile field. 8:12:34 MERA 260 wire (V34927) opened to sterile field. 8:12:47 SHEATH 6FR Genesee (UCT563) opened to sterile field. 8:13:02 BENTSON 145cm wire (T30883) opened to sterile field. 8:13:46 TORQUE DEVICE PLASTIC .038 ( TD01) opened to sterile field. 8:13:47 GLIDE WIRE ANGLE 260cm (VW4979) opened to sterile field. 8:13:48 GLIDE CATHETER 5FR ANGLED 65cm (CG507) opened to sterile field. 8:32:28 Benadryl 50 mg I.V. was administered by Heike Fuller RN; Per physician ; Verbal order read back and verified. 8:36:00 - 8:36:09 Pre procedure: right dorsailis pedis pulse Doppler 8:36:14 Pre procedure: left dorsailis pedis pulse 0-Absent 8:36:22 Pre procedure: right posterior tibial pulse Doppler 8:36:28 Pre procedure: left posterior tibial pulse Doppler 8:36:36 Left groin area was prepped with chlora-prep and draped in sterile fashion 8:36:38 Alarms reviewed by Lissa Beckham 8:36:49 2) 60-89 Mildly reduced kidney function, and other findings (as for stage 1) point to kidney disease. 8:36:54 Fire Safety Assessment: A--An alcohol-based skin anteseptic being used preoperatively., C--Open oxygen or nitrous oxide is being used. 8:42:57 Physician arrived 8:42:57 --------ALL STOP TIME OUT------ 8:42:58 Final Timeout: patient, procedure, and site verified with staff and physician. All members of the team are in agreement. 8:45:39 Procedure started. 8:45:45 Local anesthetic to left femerol artery with Lidocaine 1% by Yung Salazar MD.INITIAL ACCESS ONLY 8:46:29 Versed 2 mg I.V. was administered by Heike Fuller RN; for sedation; Verbal order read back and verified. 8:46:41 Fentanyl 100 mcg I.V. was administered by Heike Fuller RN; for sedation; Verbal order read back and verified. 8:51:46 Heparin Bolus 4000 units I.V. was administered by Heike Fuller RN; Per physician; Verbal order read back and verified. 8:52:30 Versed 1 mg I.V. was administered by Heike Fuller RN; for sedation; Verbal order read back and verified. 8:52:33 A DIAGNOSTIC IMT 5Fr Catheter ([id number]) was advanced over the wire an d used for . 8:52:39 Fentanyl 50 mcg I.V. was administered by Heike Fuller RN; for sedation ; Verbal order read back and verified. 8:58:55 SHEATH DESTINATION 6FR X 65CM (RSP01) opened to sterile field. 8:58:56 ROADRUNNER .035 260 glide wire (L36132) opened to sterile field. 9:04:03 CHOICE PT Extra Support J 300cm guide wire ([id number]) opened to steril e field. 9:04:20 INFLATOR BasixTOUCH (BN6773) opened to sterile field. 9:04:43 Inflate balloon Inflation number: 1 A SHOCKWAVE BALLOON 5.5 X 60 ([id number]) was prepped and advanced across the Undefined lesion 1 on undefined graft 1 , then inflated . 9:14:51 CXI SUPPORT .035 135 CM STR catheter (E85596) opened to sterile field. 9:19:55 Heparin Bolus 2000 units I.V. was administered by Heike Fuller RN; use d for procedure; Verbal order read back and verified. 9:23:42 Versed 1 mg I.V. was administered by Heike Fuller RN; for sedation; Verbal order read back and verified. 9:23:51 Fentanyl 50 mcg I.V. was administered by Heike Jonny RN; for sedation ; Verbal order read back and verified. 9:24:21 Hawkone Medium Atherectomy System (H1-M) opened to sterile field. 9:26:42 Nitroglycerin IC/IA 300 mcg I.A. was administered by Yung Salazar MD; used for procedure; Verbal order read back and verified. 9:42:26 Inflate balloon Inflation number: 1 A In.Pact Admiral 5 x 60 x 130 DCB ([id number]) was prepped and advanced across the Undefined1 , then inflated . 9:45:09 Inflate balloon Inflation number: 2 A INPACT ADMIRAL 6X60 ([id number] ) was prepped and advanced across the Undefined1 , then inflated . 9:49:48 Fentanyl 100 mcg I.V. was administered by Yung Salazar MD; for pain; Verbal order read back and verified. 9:56:42 MYNX SHIPYARD SUPERVISOR 6FR/7FR (LN5731) opened to sterile field. 10:00:56 Procedure ended.(Physican Out) 10:06:11 Contrast amount:Isovue 300 75ml. 10:06:16 Fluoroscopy time 00.00 minutes. 10:06:22 Fluoroscopy dose: 647 mGy 10:06:22 Flurop Dose total: 647 10:06:24 Procedure and supply charges have been captured, reviewed, submitted an d are correct. 10:09:12 Report given to Outpatients. 10:09:52 Vital chart was stopped Intervention Summary Intervention Notes Time ActionType Lesion and Equipment Used Action# Pressure Duration Attributes 9:04:43 Inflate Undefined SHOCKWAVE BALLOON 1 0 00:00 balloon lesion 1 on 5.5 X 60 undefined ([id number]) graft 1 9:42:26 Inflate Undefined1 In.Pact Admiral 5 1 0 00:00 balloon x 60 x 130 DCB ([id number]) 9:45:09 Inflate Undefined1 INPACT ADMIRAL 2 0 00:00 balloon 6X60 ([id number]) Device Usage Item Name Manufacture Quantity Catalog Number Hospital Part Curr ent Minimal Lot# / Charge Number Stock Stock Serial# Code Bag Decanter Microtek 1 [id number] 65820 9826 33 5 () Medical Inc. Sterile Cardinal 1 [id number] 2401 64 5 Angiographic [facility] Tegaderm 4 x 4 3M 1 1626W 475347 195012 8700 20 5 (1626W) Micropuncture VSI VSI VASCULAR 1 7266V 031743 7374 23 5 4FR kit SOLUTIONS MERA 260 wire [employer] 1 H23028 650010 247258 5803 79 5 (X74407) SHEATH 6FR Terumo 1 NME517 949746 691162 1947 16 40 [place] (DHT018) BENTSON 145cm [employer] 1 L93009 170011 5152 77 5 wire (M58893) TORQUE DEVICE Scott 1 TD01 121716 223868 6495 88 5 PLASTIC .038 ( Scientific TD01) GLIDE WIRE ANGLE Terumo 1 IO9781 372600 005986 1618 42 5 260cm (HZ5500) GLIDE CATHETER Terumo 1 CG507 292457 9260 15 5 5FR ANGLED 65cm (CG507) DIAGNOSTIC IMT Scott 1 [id number] 273670 381937 0694 9 5 5Fr Catheter Scientific ([id number]) SHEATH Terumo 1 RSP01 354950 72581 9999 87 1 DESTINATION 6FR X 65CM (RSP01) ROADRUNNER .035 [employer] 1 Z77788 772886 913865 4337 70 5 260 glide wire (G75687) CHOICE PT Extra Scott 1 [id number] 272485 521511 4518 62 5 Support J 300cm Scientific guide wire (7744220H6) INFLATOR Merit 1 GM1477 824005 833437 7274 86 5 [facility] (RF5029) SHOCKWAVE BALLOON SHOCKWAVE 1 [id number] 043068 7418808 9999 993 1 5.5 X 60 MEDICAL ([id number]) CXI SUPPORT .035 [employer] 1 S86030 315787 055835 1907 93 5 [id number] 135 CM STR catheter (L87665) Hawkone Medium Medtronic 1 H1-M 063329 1395 9926 5 Atherectomy System (H1-M) In.Pact Admiral 5 Medtronic 1 [id number] 763791 678940 8451 87 5 x 60 x 130 DCB ([id number]) INPACT ADMIRAL Medtronic 1 [id number] 616688 836544 4763 95 1 6X60 ([id number]) MYNX SHIPYARD SUPERVISOR 6FR/7FR Access 1 YF2294 443966 1037 73 5 (YC2621) Closure Signature Audit [place] Stage Time Signature Unsigned Intra-Procedure 07/26/2020 Patt Burnham 10:09:48 AM RT(R) [facility] [address] [place] [address]
[2020-07-26 05:59] LABS: BASOPHILS 0.5 % (0-2); EOSINOPHILS 4.7 % (0-7); HEMATOCRIT 48.3 % (42.0-54.0); HEMOGLOBIN 16.7 g/dL (13.5-17.5); LYMPHOCYTES 30.4 % (15-50); MCH 36.1 pg (26.0-34.0); MCHC 34.5 g/dL (31.0-37.0); MCV 104.7 fL (80.0-100.0); MEAN PLATELET VOLUME 7.9 fL (7.4-10.4); MONOCYTES 12.3 % (2-11); NEUTROPHILS 52.1 % (40-80); PLATELET COUNT 142 10x3/uL (130-400); RBC 4.61 10x6/uL (4.20-6.10); RDW 12.6 % (11.5-14.5); WBC 6.3 10x3/uL (4.8-10.8)
[2020-07-26 06:11] LABS: APTT 29.6 SECONDS (22.8-39.4); INR 1.31 (0.85-1.17); PROTIME 15.1 SECONDS (11.6-15.0)
[2020-07-26 06:15] LABS: CALC OSMOLALITY 281 mosm/kg (275-300); CALCIUM 9.2 mg/dL (8.5-10.1); CARBON DIOXIDE 27.5 mmol/L (21.0-32.0); CHLORIDE - SERUM 104 mmol/L (98-107); GLUCOSE 114 mg/dL (74-106); POTASSIUM - SERUM 3.7 mmol/L (3.5-5.1); SODIUM 141 mmol/L (136-145); UREA NITROGEN 12 mg/dL (7-18); eGFR NON AFRICAN AMERICAN 81 mL/min (90-120)
[2020-07-26 06:21] VITALS: BP 129/74; Ht 170.2 cm; Wt 82.7 kg
--- NOTE | 2020-07-26 14:51 | NUR ---
RECOVERY HAS BEEN UNEVENTFUL. BEDREST X4 HOURS, LEFT GROIN SITE WITHOUT S/S OF HEMATOME. R PD AND PT PULSES STRONG BY DOPPLER, FOOT IS WARM AND PINK. IV D/C'D WITH CANNULA INTACT, PRESSURE HELD AND DRSG PLACED. ISSA FROM DR CARBALLO'S OFF IS AT BEDSIDE AND GAVE F/U APPT AND OK TO DISCHARGE
== END 2020-07-26 14:25 | disposition home or self-care (01) ==
LOC: D.SP 05:32 → D.RAD 08:00 → D.SP 08:00
PROVIDERS: ATTEND Radiology Diagnostic Radiology
DX: I70.291 Other atherosclerosis of native arteries of extremities, right leg (principal); J44.9 Chronic obstructive pulmonary disease, unspecified; I25.10 Atherosclerotic heart disease of native coronary artery without angina pectoris; I10 Essential (primary) hypertension

== ENCOUNTER 2020-08-14 08:25 | Emergency (ER) | payer BC ==
[~2020-08-14] VITALS: Ht 170.2 cm; Wt 81.8 kg
[2020-08-14 08:39] VITALS: Ht 170.2 cm; Wt 81.8 kg
[2020-08-14 10:07] LABS: CALC OSMOLALITY 286 mosm/kg (275-300); CALCIUM 10.1 mg/dL (8.5-10.1); CARBON DIOXIDE 25.4 mmol/L (21.0-32.0); CHLORIDE - SERUM 108 mmol/L (98-107); CREATININE - SERUM 0.7 mg/dL (0.6-1.3); GLUCOSE 106 mg/dL (74-106); POTASSIUM - SERUM 3.8 mmol/L (3.5-5.1); SODIUM 144 mmol/L (136-145); UREA NITROGEN 12 mg/dL (7-18); eGFR NON AFRICAN AMERICAN > 90 mL/min (90-120)
[2020-08-14 10:10] LABS: APTT 27.4 SECONDS (22.8-39.4); INR 1.17 (0.85-1.17); PROTIME 13.8 SECONDS (11.6-15.0)
[2020-08-14 10:11] LABS: ALBUMIN 3.8 g/dL (3.4-5.0); ALKALINE PHOSPHATASE 100 U/L (30-120); ALT (SGPT) 67 U/L (10-68); BASOPHILS 0.6 % (0-2); BILIRUBIN - TOTAL 0.79 mg/dL (0.2-1.3); EOSINOPHILS 0.9 % (0-7); HEMATOCRIT 46.8 % (42.0-54.0); HEMOGLOBIN 16.1 g/dL (13.5-17.5); LYMPHOCYTES 19.6 % (15-50); MCH 36.1 pg (26.0-34.0); MCHC 34.3 g/dL (31.0-37.0); MCV 105.1 fL (80.0-100.0); MEAN PLATELET VOLUME 8.7 fL (7.4-10.4); MONOCYTES 11.2 % (2-11); NEUTROPHILS 67.7 % (40-80); PLATELET COUNT 121 10x3/uL (130-400); PROTEIN - SERUM 7.6 g/dL (6.4-8.2); RBC 4.45 10x6/uL (4.20-6.10); WBC 6.3 10x3/uL (4.8-10.8)
[2020-08-14] MEDS ORDERED: CYCLOBENZAPRINE10 MG PO (10:11)
[2020-08-14] MEDS ORDERED: ACETAMINOPHEN500 M1 PO (10:11)
[2020-08-14] MEDS ORDERED: IBUPROFEN800 MG PO (10:11)
[2020-08-14 10:19] LABS: BILIRUBIN NEGATIVE (NEGATIVE); KETONE TRACE mg/dL (< 1+); NITRITE NEGATIVE (NEGATIVE); SQUAMOUS EPITHELIAL <1 HPF (0-4); UROBILINOGEN NORMAL mg/dL (< 2); WHITE CELLS - URINE 1 HPF (0-1)
[2020-08-14] MEDS ORDERED: ULTRAM50 MG PO (10:19)
[2020-08-14 11:09] VITALS: BP 155/77
== END 2020-08-14 11:09 | disposition home or self-care (01) ==
LOC: D.ER 08:25
PROVIDERS: Family Medicine
DX: J43.9 Emphysema, unspecified (principal); R51.9 Headache, unspecified; I65.22 Occlusion and stenosis of left carotid artery; M54.9 Dorsalgia, unspecified; M54.2 Cervicalgia; T14.8XXA Other injury of unspecified body region, initial encounter; V49.9XXA Car occupant (driver) (passenger) injured in unspecified traffic accident, initial encounter; I10 Essential (primary) hypertension; Z95.5 Presence of coronary angioplasty implant and graft; J44.9 Chronic obstructive pulmonary disease, unspecified

== ENCOUNTER 2020-08-15 10:42 | Day surgery (SDC) | payer BC ==
[~2020-08-15] VITALS: Ht 170.2 cm; Wt 81.8 kg
--- NOTE | ~2020-08-15 | HEMODYNAMI ---
PATIENT:TISH TELLES MEDICAL RECORD: [id number] : 60 [id number] ADMISSION DATE: 08/15/20 Generatedon:114:28 Patient name: TISH TELLES Patient #: [id number] SSN: [id number] : 1960 Date of study: 08/15/2020 Page: Of Hemodynamic Procedure Report Patient Data Patient Demographics Procedure consent was obtained First Name: TISH Gender: Male Last Name: KOKI : 1960 [facility] Initial: VASQUEZ Age: 59 year(s) Patient #: [id number] Race: SSN: [id number] Additional ID: [id number] Contact details [address]: [address] [place] [address] State: [place] City: [place] Zip code: [address] Past Medical History History of disease Date Diagnosis Comments CAD Chronic lung disease->COPD Peripheral vascular disease Allergies: No known allergies Admission Admission Data Admission Date: 08/15/2020 Admission Time: 10:42 Procedure Procedure Types Cath Procedure Peripheral Cath Diagnostic Procedure Miscellaneous Procedure Description Procedure Date Procedure Date: 08/15/2020 Procedure Start Time: 13:16 Procedure Staff Name Function Yung Salazar MD Performing Physician Darell Wright RT Monitor DEANNA PANDEY RT Scrub Heike Fuller RN Nurse Procedure Data Cath Procedure Fluoroscopy Diagnostic fluoroscopy Total fluoroscopy Time: 3.8 time: 3.8 min min Diagnostic fluoroscopy Total fluoroscopy dose: 2 dose: 2 mGy mGy Contrast Material Contrast Material Type Amount (ml) Isovue 300 10 Procedure Medications Medication Administration Route Dosage Heparin Flush Bag added to field 2 bags (1000units/500ml NS) Lidocaine 1% added to field 20 Refer to Anesthesia Notes for Sedation Medications Hemodynamics Rest Pre Cath Intra NCS Post Cath Medications Time Medication Route Dose Verified Delivered Reason Notes Eff ectiveness by by 13:10:55 Heparin Flush added 2 Yung Barragan used for Bag to bags Martin Salazar procedure (1000units/500ml field MD MANJARREZ NS) 13:11:07 Lidocaine 1% added 20ml Yung Barragan for local to vial Martin Salazar anesthetic field MD MANJARREZ 13:11:11 Refer to Yung francois Anesthesia Notes Martin flores for Sedation MD MANJARREZ controller repairer and tester Medications Procedure Log Time Note 12:49:54 Darell Wright RT (R) (CV) sent for patient. Start room use. 12:50:07 Use device set IR Diagnostic 12:50:09 Bag Decanter (2002S) opened to sterile field. 12:50:10 Sterile Angiographic Pack opened to sterile field. 12:50:10 Tegaderm 4 x 4 (1626W) opened to sterile field. 12:50:24 Plan of Care:Hemodynamics will remain stable., Cardiac rhythm will remain stable., Comfort level will be maintained., Respiratory function will remain adequate., Patient/ family verbilizes understanding of procedure., Procedure tolerated without complication., Recovers from procedure without complications.. 12:50:35 Patient received from Outpatients to IR Alert and oriented. Tansferred to table in Supine position. 12:50:37 Signed procedure consent form obtained from patient. 12:50:38 Correct patient and procedure confirmed by team. 12:50:40 - 12:50:50 H&P Date Dictated: 08/15/2020 H&P Addendum completed by physician on day of procedure. (MUST COMPLETE FOR ALL OUTPATIENTS). 12:50:51 Pre-procedure instructions explained to patient. 12:50:52 Pre-procedure instructions explained to patient. 12:50:53 Pre-op teaching completed and patient verbalized understanding. 12:50:56 - 12:51:13 SEE ANESTHESIA NOTE FOR PRE PROCEDURE ANESTHESIA 12:51:52 BILLIE 145cm wire (I29799) opened to sterile field. 13:00:03 Right groin area was prepped with chlora-prep and draped in sterile fashion 13:00:14 Left Pedal was prepped with chlora-prep and draped in sterile fashion. 13:00:15 Alarms reviewed by R. N. 13:00:16 Sharps counted by scrub and verified by R.N. 13:10:55 Heparin Flush Bag (1000units/500ml NS) 2 bags added to field was administered by Yung Salazar MD; used for procedure; Verbal order read back and verified. 13:11:07 Lidocaine 1% 20ml vial added to field was administered by Yung rose MD; for local anesthetic; Verbal order read back and verified. 13:11:11 Refer to Anesthesia Notes for Sedation Medications was administered by Yung Salazar MD; ; alessandro flores crna Verbal order read back and verified. 13:15:32 Physician arrived 13:15:32 --------ALL STOP TIME OUT------ 13:15:33 Final Timeout: patient, procedure, and site verified with staff and physician. All members of the team are in agreement. 13:15:36 Right groin site verified by team. 13:15:48 Fire Safety Assessment: A--An alcohol-based skin anteseptic being used preoperatively., C--Open oxygen or nitrous oxide is being used. 13:16:19 1) 90+ Normal kidney functon but urine findings or structural abnormalities or genetic trait point to kidney disease. 13:16:31 Maximum allowable contrast dose (3.7 X eGFR X 0.75)249.75 ml. 13:16:37 Sedation plan: General Anesthesia Medication:General Anesthesia 13:16:42 Procedure started. 13:16:43 Full Disclosure recording started 13:16:53 Local anesthetic to Pedal area with Lidocaine 1% by Yung Salazar MD.INITIAL ACCESS ONLY 13:18:24 Micropuncture VSI 4FR kit opened to sterile field. 13:18:25 SHEATH 6FR Slender (00-1340) opened to sterile field. 13:22:18 CXI Catheter 90cm (K78725) opened to sterile field. 13:22:18 ROADRUNNER .035 260 glide wire (D54792) opened to sterile field. 14:23:47 Procedure ended.(Physican Out) 14:26:24 Fluoroscopy time 03.80 minutes. 14:26:28 Fluoroscopy dose: 2 mGy 14:26:28 Flurop Dose total: 2 14:26:32 Contrast amount:Isovue 300 10ml. 14:26:34 Sharps counted by scrub and verified by R.N. 14:26:37 Insertion/operative site no bleeding no hematoma. 14:27:04 Post Pedal area:stable 14:27:08 Post Procedure Pulses reassessed and unchanged 14:27:09 Post procedure instruction explained to patient.Patient verbalizes understanding. 14:27:10 Procedure and supply charges have been captured, reviewed, submitted an d are correct. 14:27:36 SEE ANESTHESIA NOTE FOR POST PROCEDURE ANESTHESIA 14:27:42 Report given to Recovery Room. 14:27:52 Patient transfered to Recovery Room with Stretcher. Device Usage Item Name Manufacture Quantity Catalog Hospital Part Current Minima l Lot# / Number Charge Number Stock Stock Serial# Code Bag Decanter Microtek 1 [id number] 62881 213315 5 () Medical Inc. Sterile Cardinal 1 [id number] 789737 977422 5 Angiographic Health Pack Tegaderm 4 x 3M 1 1626W 200168 973332 837050 5 4 (1626W) BENTSON 145cm [facility] 1 D62732 161596 327186 5 wire (I55458) Micropuncture VSI VASCULAR 1 7266V 502146 548736 5 VSI 4FR kit SOLUTIONS SHEATH 6FR Terumo 1 [id number] 876948 702443 990481 5 Slender (80-1060) CXI Catheter [facility] 1 E46961 899062 279911 678042 5 [id number] 90cm (S47969) ROADRUNNER [facility] 1 N85698 281392 914440 066511 5 [id number] .035 260 glide wire (K99042) Signature Audit [place] Stage Time Signature Unsigned Intra-Procedure 08/15/2020 Darell 2:28:27 PM [place] RT (R) (CV) [facility] [address] [place] [address]
[~2020-08-15 10:42] MED LIST changes: +ACETAMINOPHEN500 M1 PO; +CYCLOBENZAPRINE10 MG PO; +IBUPROFEN800 MG PO; +ULTRAM50 MG PO
[2020-08-15 11:05] LABS: BASOPHILS 0.6 % (0-2); HEMATOCRIT 43.6 % (42.0-54.0); HEMOGLOBIN 14.9 g/dL (13.5-17.5); LYMPHOCYTES 29.7 % (15-50); MCH 36.1 pg (26.0-34.0); MCHC 34.2 g/dL (31.0-37.0); MCV 105.7 fL (80.0-100.0); MEAN PLATELET VOLUME 7.9 fL (7.4-10.4); MONOCYTES 9.4 % (2-11); NEUTROPHILS 57.3 % (40-80); PLATELET COUNT 119 10x3/uL (130-400); RBC 4.12 10x6/uL (4.20-6.10); RDW 13.3 % (11.5-14.5)
[2020-08-15 11:14] LABS: CALC OSMOLALITY 281 mosm/kg (275-300); CALCIUM 8.8 mg/dL (8.5-10.1); CARBON DIOXIDE 30.2 mmol/L (21.0-32.0); CHLORIDE - SERUM 107 mmol/L (98-107); CREATININE - SERUM 0.7 mg/dL (0.6-1.3); GLUCOSE 97 mg/dL (74-106); POTASSIUM - SERUM 4.1 mmol/L (3.5-5.1); SODIUM 142 mmol/L (136-145); UREA NITROGEN 10 mg/dL (7-18); eGFR NON AFRICAN AMERICAN > 90 mL/min (90-120)
[2020-08-15 12:21] VITALS: Ht 170.2 cm; Wt 81.8 kg
[2020-08-15 12:29] LABS: APTT 34.4 SECONDS (22.8-39.4); INR 1.48 (0.85-1.17); PROTIME 16.6 SECONDS (11.6-15.0)
--- NOTE | 2020-08-15 16:44 | NUR ---
1452 VITAL SIGNS ARE BEING MONITORED ORDERED AND DOCUMENTED ON POST PROCEDURE FORM THAT IS PART OF THE PAPER CHART. 1553 IV DC'D. CATHETER TIP INTACT. NO BLEEDING AT SITE. BANDAID APPLIED. DISCHARGE INSTRUCTIONS REVIEWED WITH PT AND HIS WHO VOICE UNDERSTANDING OF THESE INSTRUCTIONS.
== END 2020-08-15 16:03 | disposition home or self-care (01) ==
LOC: D.RAD 10:42
PROVIDERS: ATTEND Radiology Diagnostic Radiology
DX: I70.212 Atherosclerosis of native arteries of extremities with intermittent claudication, left leg (principal)